=== PATIENT | male | born 1940 | race Caucasian/White ===

== ENCOUNTER → 2019-12-15 15:35 | Outpatient (CLI) | payer MEDICARE, BC, SELFPAY ==
--- NOTE | 2019-12-15 | DI.MRI.S_ITS ---
PROCEDURE: MR HEAD/BRAIN WO/W CON INDICATIONS: GAIT DISTURBANCE TECHNIQUE: Noncontrast axial T1 spin echo, axial T2 fast spin echo, sagittal and axial FLAIR, coronal T2 fast spin echo, axial gradient echo, axial diffusion and ADC through the brain. After the administration of contrast, axial and coronal T1 spin echo with fat saturation through the brain. COMPARISON: None. FINDINGS: Image quality: Excellent. CSF spaces: Basal cisterns are patent. No extra-axial fluid collections. Ventricles are normal in size and shape. Brain: No midline shift. No intracranial bleeds or masses. No abnormal intracranial enhancement. There is cerebral volume loss for age. There is periventricular white matter chronic small vessel ischemic change. The brainstem appears normal. Diffusion-weighted images demonstrate no acute ischemic insults. No chronic ischemic insults. Normal intravascular flow voids are present. Skull and face: Calvarial marrow is normal in signal. Orbits appear normal. Sinuses: Sinuses and mastoids appear clear. IMPRESSION: Mild microvascular atherosclerotic change in the deep white matter hemisphere. No hydrocephalus or mass lesion, no evidence of prior infarction. By this examination no prior trauma or intracranial hemorrhage is suspected. Dictated by: Reinaldo Kan M.D. on 12/15/2019 at 17:25 Approved by: Reinaldo Kan M.D. on 12/15/2019 at 17:26
== END ==
PROVIDERS: Family Provider Family Medicine Geriatric Medicine; PCP Family Medicine; Referring Provider Family Medicine; Visit Provider Family Medicine
DX: R26.9 Unspecified abnormalities of gait and mobility (principal)
CPT/HCPCS: 70553; A9579

== ENCOUNTER → 2021-08-09 10:57 | Outpatient (CLI) | payer MEDICARE, OTHER, SELFPAY ==
--- NOTE | 2021-08-09 | DI.NM.S_ITS ---
PROCEDURE: NM ROBBIN PERF SPECT R&S PHARM Rest and pharmacological stress myocardial perfusion SPECT with gated imaging and ejection fraction RADIOPHARMACEUTICAL: 11.3 mCi Tc-99m tetrafosmin IV at rest and 25.1 mCi Tc-99m tetrafosmin IV at peak effect of pharmacological stress. Lan-naq-eksikzzl was performed. INDICATIONS: Ischemic cardiomyopathy TECHNIQUE: Radiopharmaceutical was injected at peak stress test, and also at rest. SPECT images were obtained. SPECT myocardial perfusion images were displayed in short axis, horizontal long axis, and vertical long axis views. Gated images were reviewed using GoNabit software. COMPARISON: None. CARDIAC STRESS: A pharmacologic stress test was performed under the supervision of an attending staff, using an infusion of lexiscan 0.4mg IV X1. Hemodynamic data: There is normal blood pressure and heart rate response to pharmacologic stress. Symptoms: The patient denied anginal chest pain. Aminophylline: none EKG: No diagnostic changes of ischemia; frequent PVCs during the study. FINDINGS: Raw data: There is good myocardial uptake of radiotracer. No significant motion artifacts. Left ventricle function: Gated images demonstrate hypokinesis of the basal inferior and basal inferolateral wall. No transient ischemic dilation; TID is 1.04 (normal less than 1.3). Left ventricle resting end diastolic volume is 118 mL. Left ventricle stress ejection fraction is 59%; normal range is above 45%. Myocardial perfusion: There is moderately intense fixed inferior wall defect consistent with prior infarction. There is a severe fixed basal inferolateral wall defect consistent with prior infarction. No ischemia. IMPRESSION: Abnormal pharmaceutical nuclear stress test consistent with prior infarction. No ischemia. 1) There is moderately intense fixed inferior wall defect consistent with prior infarction. There is a severe fixed basal inferolateral wall defect consistent with prior infarction. No ischemia. 2) Normal left ventricular size and function (EF post stress 59%). Basal inferior wall and basal inferolateral wall are hypokinetic. 3) No ECG evidence of ischemia. 4) No angina during the study. 5) No prior nuclear stress test available for comparison. Dictated by: Maki Gonzales MD on 08/09/2021 at 16:30 Approved by: Maki Gonzales MD on 08/09/2021 at 16:34
== END ==
PROVIDERS: Family Provider Family Medicine Geriatric Medicine; PCP Family Medicine; Referring Provider Student in an Organized Health Care Education/Training Program; Visit Provider Student in an Organized Health Care Education/Training Program
DX: I25.5 Ischemic cardiomyopathy (principal); R94.39 Abnormal result of other cardiovascular function study
CPT/HCPCS: 78452; 93017; A9502; J2785

== ENCOUNTER → 2021-10-31 12:39 | Outpatient (CLI) | payer OTHER, MEDICARE, SELFPAY ==
--- NOTE | 2021-10-31 12:59 | DI.CT.S_ITS ---
PROCEDURE: CT LUMBAR SPINE WO CON INDICATIONS: LOWER BACK PAIN TECHNIQUE: Noncontrast 3 mm thick sections acquired from the T12 level to the sacrum. Sagittal and coronal reformats were constructed. For radiation dose reduction, the following was used: automated exposure control. COMPARISON: [facility], MR, L-SPINE WITHOUT CONTRAST, 02/12/2017, 12:53. [facility] [place], CR, SPINE LUMB 6+VW, 02/03/2017, 11:00. [facility], MR, L-SPINE WITHOUT CONTRAST, 12/08/2013, 14:40. [facility], MR, MR LUMBAR SPINE WITHOUT CONTRAST, 04/14/2021, 14:13. FINDINGS: Image quality: This examination is limited by involuntary motion artifact. There is artifact associated with the metallic hardware. Bones: No acute vertebral body compression fractures. No suspicious lytic or blastic bony lesions. No pars defects. Mild levoconvex scoliotic curvature is noted. Minimal retrolisthesis is seen at L1-L2. Minimal anterolisthesis is seen at L4-L5. Postoperative changes are seen, with bilateral pedicle screws at the L4 and L5 levels. The screws appear well placed. Radiolucent vertical fixation rods are seen. No findings of hardware failure or hardware loosening are seen. There has been removal of portions of the posterior elements. T12-L1: Normal. L1-L2: The disc height is well preserved. Moderate generalized disc bulge is seen. There is moderate left-sided and zzli-ut-[id number] right-sided neural foraminal narrowing seen. Moderate central canal narrowing is seen. L2-L3: The disc height is well preserved. At least moderate disc bulge is seen. There is a superimposed central disc protrusion. Mild facet joint hypertrophy is seen. Moderate bilateral neural foraminal narrowing is seen. At least moderate central canal narrowing is seen. L3-L4: The disc height is well preserved. At least moderate disc bulge is seen, which is eccentric to the right. There is at least moderate bilateral neural foraminal narrowing seen. Mild central canal narrowing is seen. L4-L5: There are postoperative changes seen at this level. Mild loss of disc height is seen. Moderate generalized disc bulge is seen. No significant neural foraminal narrowing can be seen. The central canal is widely patent. L5-S1: The disc height is relatively well preserved. Mild generalized disc bulge is seen. Moderate bilateral neural foraminal narrowing can be seen, left worse than right. The central canal is widely patent. Soft tissues: No retroperitoneal masses or hematomas. Visualized aorta is normal in caliber. Cholecystectomy clips are seen. IMPRESSION: Unremarkable L4-5 postoperative change, with unremarkable hardware. Multiple levels of degenerative change are seen, which are overall worst at the L2-L3 level and the L3-L4 level. Mild levoconvex scoliotic curvature is noted. Incidental note is made of: Cholecystectomy Dictated by: Shaun Read M.D. on 10/31/2021 at 12:48 Approved by: Shaun Read M.D. on 10/31/2021 at 12:53
== END ==
PROVIDERS: Family Provider Family Medicine Geriatric Medicine; PCP Family Medicine; Referring Provider Orthopaedic Surgery Orthopaedic Surgery of the Spine; Visit Provider Orthopaedic Surgery Orthopaedic Surgery of the Spine
DX: M48.061 Spinal stenosis, lumbar region without neurogenic claudication (principal); M47.816 Spondylosis without myelopathy or radiculopathy, lumbar region; M47.817 Spondylosis without myelopathy or radiculopathy, lumbosacral region; M41.86 Other forms of scoliosis, lumbar region; Z98.1 Arthrodesis status; Z90.49 Acquired absence of other specified parts of digestive tract
CPT/HCPCS: 72131

== ENCOUNTER 2021-12-26 06:17 | Inpatient (IN) | payer OTHER, SELFPAY ==
[2021-12-17 10:49] VITALS: BMI 24.7
[2021-12-26] VITALS (11 sets, daily range): BP systolic 112–128; BP diastolic 62–80; PULSE 49–92; RESP 10–19; TEMP 36.2–37.6; O2SAT 94–100; BMI 24.7; BMI 27.3
--- NOTE | 2021-12-26 | DI.RAD.S_ITS ---
PROCEDURE: XR LUMBAR SPINE 2-3V INDICATIONS: L3-S1 TLIF TECHNIQUE: 2 views of the lumbar spine were acquired. COMPARISON: None. FINDINGS: Bones: Postsurgical changes compatible with L3-S1 TLIF. Orthopedic hardware is in expected position. Orthopedic hardware is intact. Soft tissues: Overlying bowel gas pattern is normal. No suspicious soft tissue calcifications. IMPRESSION: Expected postsurgical change for L3-S1 TLIF. Dictated by: Gabrielle Munoz MD, PhD on 12/26/2021 at 16:44 Approved by: Gabrielle Munoz MD, PhD on 12/26/2021 at 16:45
[2021-12-26] MEDS: LACTATED RINGERS 1,000 ML 42 ML IV ×2 (07:08→09:59)
[2021-12-26] MEDS: ACETAMINOPHEN 325 MG TABLET 975 MG PO (07:09)
[2021-12-26] MEDS: GABAPENTIN 300 MG CAPSULE PO (07:25)
--- NOTE | 2021-12-26 07:49 | PM.HP.1 ---
History of Present Illness History of Present Illness Date Patient Seen: 12/26/21 Time Patient Seen: 07:50 Date of Onset of Symptoms: 11/27/20 Chief complaint: INPT Narrative: Mr. Vasquez is here for scheduled lumbar fusion surgery. He had history of lumbar fusion L4-5 TLIF with progressive worsening of his back pain due to scoliosis and adjacent level disease with spinal stenosis at L3-4, L5-S1 level. He failed conservative care and elected to proceed with surgery. Patient History Medical History (Updated 12/17/21 @ 11:31 by Sweetie Bradley RN) Bleeding ulcer CAD (coronary artery disease) Cardiomyopathy COPD (chronic obstructive pulmonary disease) Former smoker GERD (gastroesophageal reflux disease) Hearing loss History of alcoholism HLD (hyperlipidemia) HTN (hypertension) Inferior myocardial infarction (07/2018) Kidney stone Pancreatitis (12/2020) Paroxysmal A-fib Skin cancer TIA (transient ischemic attack) (~1997) Tuberculosis Surgical History (Updated 12/17/21 @ 11:26 by Sweetie Bradley RN) History of lumbar fusion (~2015) Hx of angioplasty Hx of bilateral cataract extraction Hx of cholecystectomy (12/2020) Hx of detached retina repair Hx of left inguinal hernia repair Hx of lithotripsy Hx of mitral valve repair (~1997) Hx of right inguinal hernia repair Family & Social History Social History: household members spouse Prior Living Arrangements House Safety & Behavioral: Feels Safe in Current Yes Environment Been Physically Hurt or No Threatened By a Person Suicidal Ideation Description None Suicide Plan Description No Plan Tobacco & Substance use: Tobacco type cigarettes,pipe,cigars Smoking Status Former smoker alcohol intake former Substance Use Type does not use Meds Home Medications and Allergies Home Medications Medication Instructions Recorded Confirmed Type lisinopril 2.5 mg tablet 2.5 mg PO QPM #0 09/19/10 12/26/21 History multivitamin 1 tab PO DAILY #0 09/19/10 12/26/21 History omeprazole 20 mg capsule,delayed 20 mg PO QAM #0 09/19/10 12/26/21 History release atorvastatin 20 mg tablet 20 mg PO DAILY 12/17/21 12/17/21 History metoprolol succinate 25 mg 25 mg PO BID 12/17/21 12/26/21 History tablet,extended release 24 hr rivaroxaban 20 mg tablet (Xarelto) 20 mg PO QPM 12/17/21 12/26/21 History Allergies Allergy/AdvReac Type Severity Reaction Status Date / Time soybean Allergy Severe Anaphylaxis Verified 12/26/21 06:59 latex Allergy Mild Rash Verified 12/26/21 06:59 Exam Vital Signs (past 8 hours): - 12/26/21 07:16 Temperature 98.3 F Pulse Rate 49 L Respiratory Rate 18 Blood Pressure 117/69 Pulse Oximetry 98 Oxygen Delivery Method Room Air Back/Spine/Pelvis Other: painful ROM of lumbar spine. Well healed incision. Neuro Other: Decreased motor strength in bilateral TA, EHL and hip flexion at 4/5. Sensibility is decreased to left L3, L4, L5 dermatome Assessment & Plan Assessment & Plan narrative: Risks for surgery include but not limited to bleeding, infection, nerve/dura/bladder/bowel/blood vessel injury, need for additional procedure, even . Pt understands and elected to proceeded with surgery. I scheduled him for L3-4, L5-S1 TLIF and L4-5 hardware revision L3-S1 PSF with instrumentation. Time Spent With Patient Critical Care time: I spent a total of [] minutes of critical care time on this patient's care today; this time is exclusive of procedural time.
--- NOTE | 2021-12-26 07:57 | SUR.OPER ---
Prone on spine table, head in foam head support, padded chest and pelvic supports, gel pad at knees, lower legs supported by pillows; nipples, genitalia and toes free of pressure, arms secured on foam padded arm boards at <90 degrees abduction. Tape over blanket at thigh secured to table.
[2021-12-26] MEDS: CEFAZOLIN 2 GM/20 ML SYRINGE IV ×3 (08:24→20:35)
[2021-12-26] MEDS: BUPIVACAINE 0.25% (PF) 30 ML, EPINEPHrine 0.3 MG INJ (08:47)
[2021-12-26] MEDS: BUPIVACAINE LIPOSOME 266 MG/20 ML VIAL INJ (08:49)
--- NOTE | 2021-12-26 12:39 | PM.OP.1 ---
Operative Date/Time/Diagnoses Date of procedure: 12/26/21 Time of procedure: 07:45 Pre-op diagnosis: 1. Lumbar spinal stenosis L3-4, L4-5, L5-S1 2. Lumbar history of fusion L4-5 with hardware loosening 3. Lumbar scoliosis Post-op diagnosis: same Procedure & Clinicians Procedure: 1. L3-4, L5-S1 posterolateral and posterior interbody fusion 2. L3-4, L5-S1 posterior interbody cage placement 3. L4-5 posterior non-segmental instrumentation removal 4. L4-5 revision laminectomy with exploration of fusion 5. L3-4, L4-5, L5-S1 posterior segmental instrumentation with pedicle screw placement 6. L4-5 posterolatearl fusion 7. Warriors Mark of bone marrow from iliac crest through a separate incision 8. Utilization of microsurgical technique and operating microscope 9. Utilization of robotic navigation Same procedure as scheduled: Yes Indications: Patient has been having chronic back pain and worsening lumbar radiculopathy. Patient underwent previous lumbar fusion with persisting pain and progressive leg weakness numbness bilaterally. Patient failed multiple conservative management with worsening pain weakness and numbness in her lower extremity. Patient has been having difficulty performing activity of daily living. After discussing risks benefits of treatment options, patient elected proceed with surgery. Surgeon: Rosalina To [place] Roller: Katt Prescott Click Yes if Unassisted: No Anesthesia Type: General Operative Notes Closure Type: primary Specimen(s): none sent Prosthetic devices, grafts, tissues, transplants, or devices: Globus CREO MIS screws, Rise cages Applied: catheter Estimated Blood Loss (mL): 150 Blood products transfused: none Procedure in detail: Patient was seen in the preoperative area. Risks and benefits of the surgery was discussed with the patient. Informed consent was obtained from the patient and placed in the chart. Surgical site was marked. Patient was taken to the operative room. General anesthesia was administered. Prophylactic antibiotic was given to the patient less than 30 min before the incision was made. Patient was placed into a prone position on the Mirza table. Patient's back was then prepped and draped in the sterile fashion. Time-out was performed at this time. After patient was prepped and draped, patient's PSIS was palpated and marked bilaterally. Small 1 cm incision was made over the PSIS for placement of the reference probes. Two trocar was placed into the PSIS 1 on each side. The reference probe was attached to the trocar of the reference apparatus. At this time the C-arm imaging was used to confirm AP and lateral of L3, L4, L5, and S1 vertebrae and merged the C-arm imaging using the [employer] robotic navigation system with the CT of the lumbar spine. After successful merging was completed and confirmed, skin marker was used to onesimo out the skin incision using the [employer] robotic arm. Bilateral incision was made at this time. Using patient's previous scar incision was made over the L3, L4, L5-S1 interval on the left side. Fascia was incised in line with skin incision. Patient's previously placed hardware over the L4-5 level was identified by dissecting down to the level the hardware using a Bovie and a Andrews. The locking caps which was removed using Preisbockus screwdriver. The locking betsy was then removed from the tulips of the pedicle screws using a Rosa. The pedicle screws were then removed using the screwdriver. The screws were found to have poor purchase due to hardware loosening and indicating pseudoarthrosis at L4-5 level. Pre templated trajectory was used and guided using the [employer] robotic navigation system for left L3, L4, L5 and S1 pedicle screws and right L3, L4 , L5 and S1 pedicle screws placement. This was done by using the robotic arm to guide the high-speed bur to make a cortical entry point. Next a drill was placed also using the robotic arm and guided using the navigation system drilling partially through bilateral L3, L4, L5, S1 pedicles. Next L3, L4, L5, S1 pedicle screws it was pre templated and measured was placed onto the power pile driver and inserted into the pedicles bilaterally. After all 8 screws were placed C-arm imaging was taken of both AP and lateral to confirm the placement. Excellent placement of the screws were confirmed and a matched precisely with the pre planned screw placement using the navigation system. MARs retractor was inserted using Ansibleivation guidence. Globus MARS retractors was placed inside the incision and docked onto the L3 and L5 lamina. Using microsurgical technique and operating microscope, a L3 and L5 laminectomy and L3-4, L5-S1 facetectomy was performed using a Kerrison rongeur. Patient was found have severe lateral recess and neural foramen stenosis which was fully decompressed after the laminectomy facetectomy. More than 75% of the facets were removed during the process of decompression rendering L4-5 level grossly unstable and required a fusion procedure at the same time. The disc space at L3-4, L5-S1 was identified, and a total diskectomy was performed at L3-4, L5-S1 level. The endplates were decorticated using a rasp and shaver. The total diskectomy and decortication was performed at L3-4, L5-S1 level in order to to accomplish a L3-4, L5-S1 fusion. The local bone from the laminectomy and facetectomy was saved for local bone grafting. After the total diskectomy and decortication was completed, Trifecta bone graft material was combined with local bone that was harvested earlier. At this time, a separate skin is incision was made over the iliac crest. A Jamshidi needle was inserted into the iliac crest through a separate skin incision. 5 cc of bone marrow aspiration was obtained through the separate skin incision using a Jamshidi needle from the iliac crest. The bone marrow aspiration was combined with local bone and the Trifecta bone grafting material. The bone grafting material was placed into the L3-4, L5-S1 interbody space along with a expandable cage. The cages were expanded to its maximum height using the torque limiting screwdriver. The disc preparation as well as the cage insertion were also performed under navigation guidance. After the cage was placed, AP and lateral C-arm imaging was taken to confirm placement of the cage and excellent position was confirmed. The fusion mass on the right side of L4-5 was exposed by performing a right-sided hemilaminectomy at L4-5 level. The hemilaminectomy was performed using the Kerrison rongeur to undercut the lamina as well removing additional epidural scar tissue for purpose of decompressing the epidural space. The fusion mass was explored and was found have visible motion indicating pseudoarthrosis. Globus MARS retractor was inserted and docked onto the L3-4, L4-5 L5-S1 posterolateral gutter. Using the power drill, posterior-lateral decortication was performed at L3-4, L4-5 L5-S1 level until bleeding cortical bone was identified. The remaining bone grafting material was placed into the L3-4, L4-5 L5-S1 posterior lateral gutter he order to accomplish posterolateral fusion at the L3-4, L4-5 L5-S1 level. At this time the tulips were attached to the L3, L4-L5 and S1 pedicle screw shanks. This was done in L3, L4-L5 S1 pedicles bilaterallyAfter measuring the length of the rods, they were inserted into the tulips of the pedicle screws and locked in place using locking caps and torque limiting screwdriver bilaterally. Total 8 caps and 2 titanium rods was used in order to complete the posterior instrumentation construct. After all the hardware was placed, and confirmed with AP and lateral C-arm imaging, the wound was then irrigated with sterile normal saline and packed with Ray-Aram gauze for 3 min to accomplish hemostasis. After the gauze was removed the deep fascia was closed with #1 Vicryl suture. The subcutaneous layer was closed with 2-0 Vicryl. The skin was closed with skin cher. Patient tolerated the procedure well. There were no complications. Neuro monitoring system was used to monitor patient's neurologic status throughout entire procedure. There was no disturbance of the neural monitoring signals throughout the case. Complications: none Post-operative Condition: stable Disposition: PACU Plan for aftercare: Admit to inpatient hospital
--- NOTE | 2021-12-26 12:44 | SUR.OPER ---
Blanchable areas of erythema noted on patient postop after turning patient to supine. Bilateral patches noted on cheeks, chest, hips, knees and shins. All areas were white at first notice, but gradually turned red and were blanchable within 1 minutes of first notice.
--- NOTE | 2021-12-26 13:36 | SUR.PHASEI ---
Report to [facility]
[2021-12-26] MEDS: hydrOXYzine pamoate 25 MG CAPSULE PO (13:43)
[2021-12-26] MEDS: OXYCODONE IR 5 MG TABLET PO (13:43)
[2021-12-26] MEDS: ACETAMINOPHEN 325 MG TABLET 650 MG PO (15:06)
[2021-12-26] MEDS: OXYCODONE IR 5 MG TABLET 10 MG PO ×2 (15:06→20:30)
[2021-12-26] MEDS: SODIUM CHLORIDE 0.9% 1,000 ML 100 ML IV (15:08)
--- NOTE | 2021-12-26 18:48 | PC.NURSE ---
Post-op Received from PACU 81 y/o M s/p tlif. He is experiencing some pain and got 10mg of oxy which he reported as being effective. Has been dozzing off and on. Huizar drains adaq. Lisinopril held as pt reports bp's he is having as being lower than his normal. Tolerated diet w/out problems. Dressing to back is c/d/i. Reddened areas to chest and groin area appear less red. Resting comfortably for now.
[2021-12-26] MEDS: METOPROLOL ER 25 MG TABLET PO (20:30)
[2021-12-26] MEDS: DOCUSATE 100 MG CAPSULE PO (20:35)
[2021-12-26] MEDS: SENNOSIDES 8.6 MG TABLET 17.2 MG PO (20:35)
[2021-12-27] VITALS (8 sets, daily range): BP systolic 111–137; BP diastolic 54–73; PULSE 70–85; RESP 17–18; TEMP 37.1–38.4; O2SAT 95–98
[2021-12-27] MEDS: SODIUM CHLORIDE 0.9% 1,000 ML 100 ML IV (01:06)
[2021-12-27] MEDS: OXYCODONE IR 5 MG TABLET 10 MG PO ×5 (01:09→20:08)
[2021-12-27] MEDS: hydrOXYzine pamoate 25 MG CAPSULE PO (01:10)
[2021-12-27] MEDS: ACETAMINOPHEN 325 MG TABLET 650 MG PO ×2 (01:10→15:48)
[2021-12-27] MEDS: CEFAZOLIN 2 GM/20 ML SYRINGE IV (04:33)
[2021-12-27 05:43] LABS: Hematocrit 34.2 % (41-53); Hemoglobin 11.6 g/dL (13.5-17.5)
[2021-12-27] MEDS: PANTOPRAZOLE DR 20 MG TABLET PO (06:18)
--- NOTE | 2021-12-27 06:25 | PC.NURSE ---
doing well after TLIF. alert/oriented. voices needs. IVF, 2 doses of abx thru the NOC. prn oxy x1 for BTP, this was effective. offered additional dose this AM prior to breakfast and therapy. patient declined. moves all extremities. dressing is CDI.
--- NOTE | 2021-12-27 09:25 | PT.IIE ---
Current Diagnoses Other spondylosis with radiculopathy, lumbosacral region (12/26/21) Spinal stenosis, lumbar region without neurogenic claudication (12/26/21) Arthrodesis status (12/26/21) Other specified postprocedural states (12/26/21) Surgery Performed Operation Date: 12/26/21 07:45 Actual Procedures p L3-4,L4-5 TLIF L4-5 lumbar HWR,exploration of fusion,repeat laminectomy,reinsertion of hardware L3-S1-Teresa - Rosalina To MD Medical History (Last Updated 12/17/21 @ 11:31 by Sweetie Bradley RN) Bleeding ulcer CAD (coronary artery disease) Cardiomyopathy COPD (chronic obstructive pulmonary disease) Former smoker GERD (gastroesophageal reflux disease) Hearing loss History of alcoholism HLD (hyperlipidemia) HTN (hypertension) Inferior myocardial infarction (07/2018) Kidney stone Pancreatitis (12/2020) Paroxysmal A-fib Skin cancer TIA (transient ischemic attack) (~1997) Tuberculosis Physical Therapy Inpatient Evaluation/Re-Eval M1 PT/OT-IP Prior Functional Status Start: 12/27/21 13:18 Freq: NEEDED Status: Active Protocol: Document 12/27/21 09:25 AB (Rec: 12/27/21 13:31 AB [id number]) Medical Review Prior Functional Status Medical History Reviewed Yes Communication able to make needs known; has short term memory issues Mobility and Gait pt stated that he is independent with all mobilities and ambultion withotu AD Social History Household Members spouse Living Arrangements House Number of Floors (Floors) One Floor Number of Stairs To Enter/Railing? 3 steps wide rails to enter the house Home Environment High Toilet,Walk in Shower, Built-In Shower Seat Home Equipment Front Wheel Walker,Straight Cane,Crutches,Grab Bars In Shower Employment Status Retired M2 PT-IP Current Condition Start: 12/27/21 13:18 Freq: NEEDED Status: Active Protocol: Document 12/27/21 09:25 AB (Rec: 12/27/21 13:31 AB [id number]) Physical Therapy Current Condition Current Condition Evaluation Date 12/27/21 Treatment Diagnosis s/p L3-4, L5S1 TLIF; difficulty in walking Onset Date 12/26/21 M3 PT-IP Subjective Start: 12/27/21 13:18 Freq: NEEDED Status: Active Protocol: Document 12/27/21 09:25 AB (Rec: 12/27/21 13:31 [email or web address]) Subjective Physical Therapy Visit Type Type Initial Evaluation Visit Start Time 09:25 Visit Stop Time 10:46 Total Visit Minutes 46 Notes split visits: 925 to 950 am and 1025 to 1046 am. Number of E [employer] Visits 0 Physical Therapy Visit Comments Patient Comments requesting to use the toilet Therapy Pain Assessment Pain When Pain Assessed At Rest Pain Present Pain Present Pain Reported Location Back Intensity 6 Scale Used increases to 10/10 with mobility Pain Management Techniques Distraction,Modification of Treatment,Re-positioning, Timing of Activity with Medications M4 PT-IP Mobility and Gait Start: 12/27/21 13:18 Freq: NEEDED Status: Active Protocol: Document 12/27/21 09:25 (Rec: 12/27/21 13:31 [email or web address]) PT-Bed Mobility Assessment Rolling Type of Rolling Log Rolling Level of Assist Minimal Assistance Supine to Sit Supine to Sit Minimal Assistance Sit to Supine Sit to Supine Moderate Assistance,1 Person Assistance PT-Transfer Assessment Sit to and From Stand Sit to and from Stand Maximum Assistance,1 Person Assistance,Use of Upper Extremities Equipment Transfer Assistive Device Gait Belt,Front Wheeled Walker Orthotic/Prosthetic Devices or Brace: No Transfers Transfer Destination Toilet Transfer Technique ambulated Transfer Ability Level of Assist Moderate Assistance,Maximum Assistance,1 Person Assistance ,Use of Upper Extremities Comments Mobility Comments educated pt on back precautions and log roll bed mobility but requires cues to recall. completed supine to sit log roll min A. c/o increase back pain. sat on EOB SBA. no c/o dizziness but with increase back pain. completed sit to stand max A and max cues. ambulated to the toilet using FWW ~ 15 ft mod to max A and max cues. pt wanting to sit on the toilet for a while. positioned call light next to pt and instructed to ask for assistance. informed nurse. checked back on pt and pt seated on chair. agreed for further PT assessment. completed sit to stand max A and cues. instructed pt to sit back down. educated on sit to stand technique and completed sit to stand again and continues to require max A and max cues. pt tends to bend B knee midway during standing and pt c/o increase back pain. pt sat back on chair. informed pt and spouse that pt is not ready to go home and agreed. pt requested to go back to bed. sit to stand from chair max A and cues and step transfer to bed max A and max cues using fWW mod to max A. completed sit to supine mod A for L elevation and log roll. positioned pt on the bed. call light and table placed within reach. informed pt and spouse regarding SNF rehab and spouse agreed if pt need it. educated pt regarding pain control as pt refused pain meds this morning prior to PT. Pt understood. Gait Assessment Gait Gait Assistance Required: Moderate Assistance,Maximum Assistance Distance (Feet) 15 Able to Maintain Weight Bearing Status No During Gait Assistive Devices Assistive Device Gait Belt,Front Wheeled Walker Orthotic/Prosthetic Devices or Brace: No Gait Deviations General Gait Pattern Antalgic,Decreased Stride Length,Step-to Gait Factors Limiting Gait Function Factors Limiting Gait Function Decreased Activity Tolerance, Decreased Strength,Difficulty Following Directions,Limited Range of Motion,Pain,Poor Balance,Poor Safety Awareness PT-Balance Assessment Sitting Balance and Reactions Static Sitting Balance Ability Good Dynamic Sitting Balance Ability Fair Standing Balance and Reactions Static Standing Balance Ability Fair Dynamic Standing Balance Ability Poor Device Used FWW M5 PT-IP Objective Assessments Start: 12/27/21 13:18 Freq: NEEDED Status: Active Protocol: Document 12/27/21 09:25 AB (Rec: 12/27/21 13:31 AB [id number]) Orientation Orientation/Cognition Level of Alertness Alert Orientation Name Language Function Ability No Deficits Noted Safety Awareness Decreased Safety Awareness Memory Description Short Term Impaired Gross Range of Motion Lower Extremity ROM Assessment Within Functional Limits Strength Lower Extremity Strength Hip 4-/5 Knee 4-/5 Sensation Assessment Sensation Gross Sensation WNL Muscle Tone Muscle Tone WNL Yes M6 PT-IP Treatment Start: 12/27/21 13:18 Freq: NEEDED Status: Active Protocol: Document 12/27/21 09:25 AB (Rec: 12/27/21 13:31 AB [email or web address]) Physical Therapy Treatment Education Education Provided Precautions,Weight Bearing Status,Post-Op Packet,Safety M7 PT-IP Assessment and Plan Start: 12/27/21 13:18 Freq: NEEDED Status: Active Protocol: Document 12/27/21 09:25 AB (Rec: 12/27/21 13:31 AB [email or web address]) PT Summary Assessment and Plan Potential Rehabilitation Potential Fair Status of Condition at Evaluation Evolving Summary Impairments Pain,ROM,Strength,Balance, Coordination,Sensation,Tone, Cognition,Bed Mobility, Transfers,Gait,Activity Tolerance Assessment Summary pt requiring max A for sit to stand and mod to max with ambulation using fWW. pt with c/o increase back pain affecting mobility. pt at this time will require SNF rehab to improve strength and mobility. will continue to assess progress. Goals Bed Mobility Goal Standby Assistance Transfer Goal Standby Assistance,Front Wheeled Walker Gait Goal Standby Assistance,Front Wheel Walker Gait Distance 200 Other Goals up/down 3 steps 1 rail SBA Days to Meet Goals 10 Frequency of Treatment Frequency Of Treatment Twice a Day Treatment Plan Physical Therapy Treatment Plan Bed Mobility Training,Transfer Training,Gait Training, Therapeutic Exercise,Balance Retraining,Post Op Education, Discharge Planning,Hot or Cold Pack,Neuromuscular Re-ed, Coordination Retraining,Manual Therapy Precautions Lumbar Precautions Log Roll,No Twisting,Limit Bending,Lifting Restriction of 10 lbs,Gait Belt above Incisional Area Recommendations To Nursing Amount of Assist Needed 1 Person Assist Discharge Recommendations PT Discharge Recommendations SNF Rehab Transportation Needs at Discharge Wheelchair/Cabulance
[2021-12-27] MEDS: MULTIVITAMIN 1 TABLET 1 TAB PO (09:47)
[2021-12-27] MEDS: METOPROLOL ER 25 MG TABLET PO ×2 (09:47→21:11)
[2021-12-27] MEDS: DOCUSATE 100 MG CAPSULE PO ×2 (09:47→21:12)
[2021-12-27] MEDS: ATORVASTATIN 20 MG TABLET PO (09:47)
--- NOTE | 2021-12-27 11:14 | PM.DS.1 ---
History of Present Illness History of Present Illness Date Patient Seen: 12/27/21 Time Patient Seen: 09:00 Chief complaint: INPT Narrative: Operative Date/Time/Diagnoses Date of procedure: 12/26/21 Time of procedure: 07:45 Pre-op diagnosis: 1. Lumbar spinal stenosis L3-4, L4-5, L5-S1 2. Lumbar history of fusion L4-5 with hardware loosening 3. Lumbar scoliosis Post-op diagnosis: same Procedure & Clinicians Procedure: 1. L3-4, L5-S1 posterolateral and posterior interbody fusion 2. L3-4, L5-S1 posterior interbody cage placement 3. L4-5 posterior non-segmental instrumentation removal 4. L4-5 revision laminectomy with exploration of fusion 5. L3-4, L4-5, L5-S1 posterior segmental instrumentation with pedicle screw placement 6. L4-5 posterolatearl fusion 7. [place] of bone marrow from iliac crest through a separate incision 8. Utilization of microsurgical technique and operating microscope 9. Utilization of robotic navigation Same procedure as scheduled: Yes Indications: Patient has been having chronic back pain and worsening lumbar radiculopathy. Patient underwent previous lumbar fusion with persisting pain and progressive leg weakness numbness bilaterally. Patient failed multiple conservative management with worsening pain weakness and numbness in her lower extremity.? Patient has been having difficulty performing activity of daily living.? After discussing risks benefits of treatment options, patient elected proceed with surgery. Surgeon: Rosalina To Project Manager Industrial: Katt Prescott Click Yes if Unassisted: No Anesthesia Type: General Operative Notes Closure Type: primary Specimen(s): none sent Prosthetic devices, grafts, tissues, transplants, or devices: Globus CREO MIS screws, Rise cages Applied: catheter Estimated Blood Loss (mL): 150 Blood products transfused: none Discharge Providers Provider Date of admission: 12/26/21 06:17 Discharge Date: 12/27/21 Primary care physician: Shaun Garcia DO Consults: 12/26/21 14:10 Consult to Occupational Therapy Evaluate & Treat Comment: Physician Instructions: Evaluate and treat Consult to Physical Therapy Evaluate & Treat Comment: Physician Instructions: Evaluate and Treat Discharge provider: Katt Prescott PA-C Summary Hospital Course Discharge Diagnosis: s/p lumbar fusion Hospital Course: Mr Vasquez's hospital course was unremarkable. On POD# 1 he was complaining of back pain with movement; he denied leg pain. He was eating without difficulty. His catheter was removed and he was able to urinate independently prior to discharge. He was evaluated by PT. He lives on [facility] and due to the financial and practical inconvenience of his spouse staying in a nearby hotel, he would like to discharge home. He has a walker at home. Exam Vital Signs (past 8 hours): - 12/27/21 04:36 12/27/21 07:45 Temperature 99.5 F 98.7 F Pulse Rate 77 70 Respiratory Rate 17 18 Blood Pressure 125/68 122/62 Pulse Oximetry 98 98 Oxygen Delivery Method Room Air Oxygen Flow Rate 0 Narrative Exam Narrative: 5/5 strength in hip flexors, quadriceps, hamstrings, DF, PF, and EHL bilaterally. Sensation to light touch intact throughout BLE. Calves soft, compressible, nontender and without palpable cords or masses. Low back dressing CDI. Objective Labs Result Diagrams: 12/27/21 04:56 Labs: Laboratory Results - last 24 hr 12/27/21 04:56 Hgb 11.6 L Hct 34.2 L PFSH Medical History (Updated 12/17/21 @ 11:31 by Sweetie Bradley RN) Bleeding ulcer CAD (coronary artery disease) Cardiomyopathy COPD (chronic obstructive pulmonary disease) Former smoker GERD (gastroesophageal reflux disease) Hearing loss History of alcoholism HLD (hyperlipidemia) HTN (hypertension) Inferior myocardial infarction (07/2018) Kidney stone Pancreatitis (12/2020) Paroxysmal A-fib Skin cancer TIA (transient ischemic attack) (~1997) Tuberculosis Surgical History (Updated 12/27/21 @ 09:01 by Katt Prescott PA-C) History of lumbar fusion (~2015) Hx of angioplasty Hx of bilateral cataract extraction Hx of cholecystectomy (12/2020) Hx of detached retina repair Hx of left inguinal hernia repair Hx of lithotripsy Hx of mitral valve repair (~1997) Hx of right inguinal hernia repair Social History household members: spouse Smoking Status: Former smoker alcohol intake: former Discharge Assessment & Plan Assessment and Plan Assessment: s/p L3-4 and L5-S1 TLIF; removal of L4-5 posterior hardware; posterior fusion from L3-S1. Feeling well following procedure, would like to discharge home with spouse. Plan of Treatment: Discharge home. Multimodal pain control. Follow up in 2 weeks. Discharge Plan Discharge Plan Patient Disposition: Home Discharge orders & Medications Prescriptions: New acetaminophen 325 mg Tablet 650 mg PO Q6HR PRN (Reason: Pain, Mild (1-3)) Qty: 240 2RF docusate sodium 100 mg Capsule 100 mg PO BID PRN (Reason: constipation) Qty: 60 2RF hydroxyzine pamoate 25 mg Capsule 25 mg PO Q4HR PRN (Reason: muscle spasm) Qty: 120 1RF oxycodone 5 mg Tablet 10 mg PO Q4H PRN (Reason: Pain, Severe (7-10)) Qty: 60 0RF Continued lisinopril 2.5 mg Tablet 2.5 mg PO QPM Qty: 0 0RF omeprazole 20 mg Capsule,Delayed Release(Dr/Ec) 20 mg PO QAM Qty: 0 0RF multivitamin Tablet 1 tab PO DAILY Qty: 0 0RF atorvastatin 20 mg Tablet 20 mg PO DAILY 0RF metoprolol succinate 25 mg Tablet Extended Release 24 Hr 25 mg PO BID 0RF Xarelto 20 mg Tablet 20 mg PO QPM 0RF Rx Instructions: must administer with evening meal Follow up/Referrals: Rosalina To MD [Physician] - As previously scheduled (Follow up with Dr To on 01/08/2022 @ 10:50 am at [facility]) Shaun Garcia DO [Primary Care Provider] - Diet/Activity/Treatments Diet: Diet as Tolerated Activity: Walk frequently! No deep bending (more than 90 degrees) or twisting at the waist. No lifting > 20 pounds. Skin/Wound/Dressing Care Report to your healthcare provider any signs of infection, such as:: chills, fever, night sweats, increased pain, unusual drainage and unusual redness Dressing: May shower; keep incisions as dry as possible. Change dressing if it becomes wet inside. No bathing or otherwise soaking incisions. Do not put any creams, lotions, or ointments on incisions. Visit Report/Discharge Packet Instructions: DI for Heart Failure, DI for Prescription Opioid Use, DI for Transforaminal Lumbar Interbody Fusion Stand Alone Forms: Surgery Discharge Discharge Data Primary Care Provider: Shaun Garcia
--- NOTE | 2021-12-27 11:29 | OT.IPNOTE ---
Attempted OT eval with pt but pt just finished with PT earlier. Pt states too tired and in too much pain. Therefore touch base with pt later or if needed to see pt tomorrow as pt wanting to focus on his mobility today.
--- NOTE | 2021-12-27 13:10 | OT.IP.EVAL ---
Current Diagnoses Other spondylosis with radiculopathy, lumbosacral region (12/26/21) Spinal stenosis, lumbar region without neurogenic claudication (12/26/21) Arthrodesis status (12/26/21) Other specified postprocedural states (12/26/21) Surgery Performed Operation Date: 12/26/21 07:45 Actual Procedures p L3-4,L4-5 TLIF L4-5 lumbar HWR,exploration of fusion,repeat laminectomy,reinsertion of hardware L3-S1-Teresa To MD Past Medical History (Last Updated 12/17/21 @ 11:31 by Sweetie Bradley RN) Bleeding ulcer CAD (coronary artery disease) Cardiomyopathy COPD (chronic obstructive pulmonary disease) Former smoker GERD (gastroesophageal reflux disease) Hearing loss History of alcoholism History of lumbar fusion (~2015) HLD (hyperlipidemia) HTN (hypertension) Hx of angioplasty Hx of bilateral cataract extraction Hx of cholecystectomy (12/2020) Hx of detached retina repair Hx of left inguinal hernia repair Hx of lithotripsy Hx of mitral valve repair (~1997) Hx of right inguinal hernia repair Inferior myocardial infarction (07/2018) Kidney stone Pancreatitis (12/2020) Paroxysmal A-fib Skin cancer TIA (transient ischemic attack) (~1997) Tuberculosis Surgical History (Last Updated 12/17/21 @ 11:26 by Sweetie Bradley, RN) History of lumbar fusion (~2015) Hx of angioplasty Hx of bilateral cataract extraction Hx of cholecystectomy (12/2020) Hx of detached retina repair Hx of left inguinal hernia repair Hx of lithotripsy Hx of mitral valve repair (~1997) Hx of right inguinal hernia repair Occupational Therapy Inpatient Evaluation/Re-Eval M1 PT/OT-IP Prior Functional Status Start: 12/27/21 13:18 Freq: NEEDED Status: Active Protocol: Document 12/27/21 09:25 AB (Rec: 12/27/21 13:31 AB [id number]) Medical Review Prior Functional Status Medical History Reviewed Yes Communication able to make needs known; has short term memory issues Mobility and Gait pt stated that he is independent with all mobilities and ambulation without AD Social History Household Members spouse Living Arrangements House Number of Floors (Floors) One Floor Number of Stairs To Enter/Railing? 3 steps wide rails to enter the house Home Environment High Toilet,Walk in Shower, Built-In Shower Seat Home Equipment Front Wheel Walker,Straight Cane,Crutches,Grab Bars In Shower Employment Status Retired M2 OT-IP Current Condition Start: 12/27/21 13:15 Freq: Status: Active Protocol: Document 12/27/21 11:05 [facility] (Rec: 12/27/21 13:35 [facility] [id number]) Occupational Therapy Current Condition Current Condition Evaluation Date 12/27/21 Treatment Diagnosis s/p L3-4, L5-S1, L4-5 hardware revision, L3-S1 PSF with ins Diagnosis Onset Date 12/26/21 Post Operative Precautions Lumbar Precautions Log Roll,No Twisting,Limit Bending,Lifting Restriction of 10 lbs,Gait Belt above Incisional Area M3 OT- IP Subjective and Pain Start: 12/27/21 13:15 Freq: Status: Active Protocol: Document 12/27/21 11:05 [facility] (Rec: 12/27/21 13:35 [facility] [id number]) OT- Subjective Occupational Therapy Visit Type Type Initial Evaluation Visit Start Time 11:05 Visit Stop Time 13:10 Total Visit Minutes 30 Notes Pt seen for split treatment [id number] and [id number]. Pt's in the room for OT eval. Occupational Therapy Visit Comments Patient Comments Pt agreed to get up in PM due to wanting to use the bathroom . Patient/Caregiver Goals TO go home. OT Pain Assessment Pain When Pain Assessed During Mobility Pain Present Pain Present Pain Reported Location Back Intensity 5 Scale Used Numeric (0 - 10) M4 OT- IP ADL's Start: 12/27/21 13:15 Freq: Status: Active Protocol: Document 12/27/21 11:05 [facility] (Rec: 12/27/21 13:35 [facility] [id number]) OT [id number] General Evaluation Self-Feeding Ability Independent OT ADL-Grooming Comments OT Grooming Comments Not performed. OT ADL-Oral Care Comments Oral Care Comments Not performed. OT ADL-Dressing General Eval Lower Body Dressing Ability Maximum Assistance Areas Needing Assistance Socks Comments OT Dressing Comments Pt states that his will be able to assist for his needs. OT ADL-Toileting Comments OT Toileting Comments Attempted to get to the bathroom however pt too unsteady on his feet and therefore had pt sit and try to use the urinal. OT ADL-Bathing Comments OT Bathing Comments Sponge bath more appropriate at this time. M5 OT- IP IADL's Start: 12/27/21 13:15 Freq: Status: Active Protocol: Document 12/27/21 11:05 [facility] (Rec: 12/27/21 13:35 [facility] [id number]) OT-Instrumental Activities of Daily Living Home Safety Awareness Home Safety Comments Pt has a supportive to be able to assist pt for his needs. M6 OT- IP Functional Cognition Start: 12/27/21 13:15 Freq: Status: Active Protocol: Document 12/27/21 11:05 [facility] (Rec: 12/27/21 13:35 [facility] [id number]) Cognitive Factors Limiting Selfcare Function Cognitive Ability Level of Alertness Alert Patient Orientation Name,Place,Situation Attention Span Ability Capable of Focused Attention, Capable of Sustained Attention Ability to Follow Commands Able to Follow One Step Commands Cognitive Comments Cognitive Assessment Comments Pt able to follow commands and follow his back precautions after cues. OT- Vision and Hearing OT- Vision Assessment Visual Acuity Glasses All The Time M7 OT- IP Mobility and Balance Start: 12/27/21 13:15 Freq: Status: Active Protocol: Document 12/27/21 11:05 [facility] (Rec: 12/27/21 13:35 [facility] [id number]) OT- Bed Mobility Assessment Rolling Type of Rolling Roll to Right Level of Assistance Standby Assistance Supine to Sit Supine to Sit Assist Moderate Assistance Sit to Supine Sit to Supine Assist Minimal Assistance Scooting Scooting to Edge of Bed Contact Guard Assistance OT-Transfer Assessment Sit to and From Stand Sit to and from Stand Moderate Assistance,Maximum Assistance Comments Mobility Comments MOD/MAX AX to stand to FWW and unsteady on his feet and able to take a few side steps to the head of the bed with MODA and FWW. OT- Balance Assessment Sitting Balance and Reactions Static Sitting Balance Ability Good Standing Balance and Reactions Static Standing Balance Ability Poor M8 OT- IP Objective Assessments Start: 12/27/21 13:15 Freq: Status: Active Protocol: Document 12/27/21 11:05 [facility] (Rec: 12/27/21 13:35 [facility] [id number]) OT-Muscle Tone Assessment Muscle Tone WNL Yes M9 OT- IP Assessment and Plan Start: 12/27/21 13:15 Freq: Status: Active Protocol: Document 12/27/21 11:05 [facility] (Rec: 12/27/21 13:35 [facility] [id number]) OT Summary Assessment and Plan Potential Rehabilitation Potential Good Analytic Complexity at Evaluation Low Summary OT Impairments Pain,Balance,Functional Mobility,Grooming,Dressing, Toileting,Bathing,Toilet Transfers,Shower Transfers, Activity Tolerance Progress Towards Goals Slow Progress due to Pain,Slow Progress due to Medical Issues,Slow Progress due to Activity Tolerance Assessment Summary Pt low complexity and main barriers are pain, unsteady on his feet and now needing extensive assist for ADl and mobility needs. Pending pain control, progress and caregiver training, pt hoping to go home versus may need short skilled rehab. Goals Grooming Goal Independent Dressing Goal Minimal Assistance Toileting Goal Independent Bathing Goal Independent Toilet Transfer Goal Independent Shower Transfer Goal Independent Patient/Caregiver Education Goal Demonstrate Post-Op Precautions,Caregiver Independent Assisting Patient Days to Meet Goals 10 Frequency of Treatment Frequency Of Treatment Once a Day Treatment Plan OT Treatment Plan ADL Training,Functional Mobility,Patient/Family Education,Discharge Planning Other Treatment Recommendations and Next caregiver training Treatment Focus Discharge Recommendations OT Discharge Recommendations Home vs SNF Home Equipment Needs shower chair Transportation Needs at Discharge Private Vehicle,Wheelchair/ Cabulance
--- NOTE | 2021-12-27 14:10 | PT.IPTN ---
Current Diagnoses Other spondylosis with radiculopathy, lumbosacral region (12/26/21) Spinal stenosis, lumbar region without neurogenic claudication (12/26/21) Arthrodesis status (12/26/21) Other specified postprocedural states (12/26/21) Surgery Performed Operation Date: 12/26/21 07:45 Actual Procedures p L3-4,L4-5 TLIF L4-5 lumbar HWR,exploration of fusion,repeat laminectomy,reinsertion of hardware L3-S1-Teresa - Rosalina To MD Physical Therapy Treatment Note M2 PT-IP Current Condition Start: 12/27/21 13:18 Freq: NEEDED Status: Active Protocol: Document 12/27/21 09:25 AB (Rec: 12/27/21 13:31 AB [id number]) Physical Therapy Current Condition Current Condition Evaluation Date 12/27/21 Treatment Diagnosis s/p L3-4, L5S1 TLIF; difficulty in walking Onset Date 12/26/21 M3 PT-IP Subjective Start: 12/27/21 13:18 Freq: NEEDED Status: Active Protocol: Document 12/27/21 14:10 AB (Rec: 12/27/21 16:06 AB [email or web address]) Subjective Physical Therapy Visit Type Type Treatment Note Visit Start Time 14:10 Visit Stop Time 14:32 Total Visit Minutes 22 Number of SUPERVISOR STENO POOL Visits 0 Physical Therapy Visit Comments Patient Comments pt is agreeable to do PT Therapy Pain Assessment Pain When Pain Assessed At Rest Pain Present Pain Present Pain Reported Location Back Intensity 4 Scale Used increases to 8/10 with mobility M4 PT-IP Mobility and Gait Start: 12/27/21 13:18 Freq: NEEDED Status: Active Protocol: Document 12/27/21 14:10 AB (Rec: 12/27/21 16:06 AB [email or web address]) PT-Bed Mobility Assessment Rolling Type of Rolling Log Rolling Level of Assist Minimal Assistance Supine to Sit Supine to Sit Minimal Assistance,1 Person Assistance Sit to Supine Sit to Supine Moderate Assistance,1 Person Assistance PT-Transfer Assessment Sit to and From Stand Sit to and from Stand Maximum Assistance,1 Person Assistance,Use of Upper Extremities Equipment Transfer Assistive Device Gait Belt,Front Wheeled Walker Orthotic/Prosthetic Devices or Brace: No Transfer Ability Level of Assist Maximum Assistance Comments Mobility Comments pt completed supine to sit log roll min A and cues. c/o increase pain with mobility. completed sit to stand max A and cues and ambulated in room ~ 8 ft using FWW max A. pt is unsteady with standing rest breaks in between due to c/o pain with slight knee buckle during turn. pt wants to urinate but does not want to walk to the toilet and wants to use the urinal in sitting. ambulated back to EOB. used the urinal. rested to go back to bed and completed log rol sit to supine mod A with LE elevation. positioned pt in bed. call light and table placed within reach. Pt continue to c/o increase pain affecting mobility. Gait Assessment Gait Gait Assistance Required: Maximum Assistance Distance (Feet) 8 Assistive Devices Assistive Device Gait Belt,Front Wheeled Walker Orthotic/Prosthetic Devices or Brace: No Gait Deviations General Gait Pattern Decreased Stride Length, Decreased Feet Clearance Factors Limiting Gait Function Factors Limiting Gait Function Decreased Activity Tolerance, Decreased Strength,Limited Range of Motion,Pain,Poor Balance,Poor Safety Awareness M5 PT-IP Objective Assessments Start: 12/27/21 13:18 Freq: NEEDED Status: Active Protocol: Document 12/27/21 09:25 AB (Rec: 12/27/21 13:31 AB [email or web address]) Orientation Orientation/Cognition Level of Alertness Alert Orientation Name Language Function Ability No Deficits Noted Safety Awareness Decreased Safety Awareness Memory Description Short Term Impaired Gross Range of Motion Lower Extremity ROM Assessment Within Functional Limits Strength Lower Extremity Strength Hip 4-/5 Knee 4-/5 Sensation Assessment Sensation Gross Sensation WNL Muscle Tone Muscle Tone WNL Yes M6 PT-IP Treatment Start: 12/27/21 13:18 Freq: NEEDED Status: Active Protocol: Document 12/27/21 14:10 AB ([facility]27/21 [facility] Physical Therapy Treatment Education Education Provided Precautions,Safety M7 PT-IP Assessment and Plan Start: 12/27/21 13:18 Freq: NEEDED Status: Active Protocol: Document 12/27/21 14:10 AB (Rec: 12/27/21 16:06 [facility] PT Summary Assessment and Plan Potential Rehabilitation Potential Fair Summary Impairments Pain,ROM,Strength,Balance, Coordination,Sensation,Tone, Cognition,Bed Mobility, Transfers,Gait,Activity Tolerance Progress Towards Goals Slow Progress due to Pain Assessment Summary pt continue to c/o increase back pain affecting mobility and requiring max A with sit to stand and with ambulation using FWW. pt unable to tolerate much activity and only ambulated 8 ft this afternoon. will continue to assess progress but pt huma require SNF rehab at this time . Goals Bed Mobility Goal Standby Assistance Transfer Goal Standby Assistance,Front Wheeled Walker Gait Goal Standby Assistance,Front Wheel Walker Gait Distance 200 Other Goals up/down 3 steps 1 rail SBA Days to Meet Goals 10 Frequency of Treatment Frequency Of Treatment Twice a Day Treatment Plan Physical Therapy Treatment Plan Bed Mobility Training,Transfer Training,Gait Training, Therapeutic Exercise,Balance Retraining,Post Op Education, Discharge Planning,Hot or Cold Pack,Neuromuscular Re-ed, Coordination Retraining,Manual Therapy Precautions Lumbar Precautions Log Roll,No Twisting,Limit Bending,Lifting Restriction of 10 lbs,Gait Belt above Incisional Area Recommendations To Nursing Amount of Assist Needed 1 Person Assist Discharge Recommendations PT Discharge Recommendations SNF Rehab Transportation Needs at Discharge Wheelchair/Cabulance
[2021-12-27] MEDS: lisinopriL 5 MG TABLET 2.5 MG PO (15:50)
--- NOTE | 2021-12-27 17:01 | PC.NURSE ---
Assumed care of pt at 1500. Pt resting in bed during hand-off. Awakens to voice. Oriented x3. Drsg on back intact with mod drainage. Huizar removed at 0845. Per Katt MURILLO pt can d/c to home if cleared by P.T., Unable to clear P.T. Msg left at SNO office to notify that pt is not leaving today. D/C ordered Canceled.
[2021-12-27] MEDS: SENNOSIDES 8.6 MG TABLET 17.2 MG PO (21:12)
[2021-12-27] MEDS: SODIUM CHLORIDE 0.9% FLUSH 10 ML IV (21:12)
[2021-12-28 00:23] VITALS: BP 111/68; PULSE 84; RESP 17; TEMP 37.8; O2SAT 95
[2021-12-28] MEDS: ACETAMINOPHEN 325 MG TABLET 650 MG PO ×2 (04:24→14:16)
[2021-12-28] MEDS: OXYCODONE IR 5 MG TABLET 10 MG PO ×3 (04:26→14:15)
[2021-12-28 05:07] VITALS: BP 110/67; PULSE 83; RESP 17; TEMP 38.2; O2SAT 94
--- NOTE | 2021-12-28 05:11 | PC.NURSE ---
Picked up pt mid shift, complains of pain /, oxy 10 mg and tylenol 650 given. Pt states he is unable to roll over because it hurts too much. Encouraged pt to move and change position in bed, pt able to move in bed.
[2021-12-28] MEDS: PANTOPRAZOLE DR 20 MG TABLET PO (06:17)
[2021-12-28 06:26] VITALS: TEMP 36.8
[2021-12-28 08:02] VITALS: BP 102/41; PULSE 65; RESP 18; TEMP 37.4; O2SAT 96
--- NOTE | 2021-12-28 09:05 | CM.IDA ---
Initial DCP Assessment Note Pt is an 81 yo male, resident of [place], now POD#2 from spinal surgery w/ Dr To. Patient has been discharged today 12.28.21 PCP: Shaun Garcia Payer: [employer] Reviewed chart, met w/patient and his yesterday; introduced role and reviewed DCP Patient living mostly indp at home, mobility and endurance limited d/t pain Patient/spouse discuss home plan and wonder if HH RN/PT would be helpful? Discussed [facility] services and this WINCHER suggested HH referral to see if they could get auth from patient's [employer] insurer, patient/spouse agreeable Plan: DC home today w/spouse, [place], pov, [facility] referral faxed to see if they could take [employer] BLOSSOM Elliott Discharge Planning/Care Management CM Discharge Assessment Start: 12/28/21 09:01 Freq: Status: Active Protocol: Document 12/28/21 09:01 BASIL[place] (Rec: 12/28/21 09:05 [place] [id number]) Discharge Planning Assessment Assigned Copper Tapper BLOSSOM Belle DPOA/Assigned Designee Name Carla Vasquez, spouse Contact Information [phone] Advance Directives? Yes Advance Directives on File No History Provided By Patient,Significant Other Prior Living Arrangements House Household Members spouse Type of transporation used prior to Drives own vehicle admit Independent with ADL's Yes Is patient alert and oriented? Yes Comment Decreased activity tolerance and endurance d/t pain Caregiver for Another No Comment Spouse states she had HH when she went home after knee surgery Patient/Family Preference Home with Home Health Barriers to Discharge Yes Comment PT recommending SNF; patient slow to progress thus far. DC home today per patient and family request Discharge Plan Home with Home Health Transportation Arrangement Family Referrals Initiated Home Health Additional Comment Referral to [facility] to investigate HH coverage w/ patient's [employer] Medicare Choice List Provided No SNF/HH Preference [facility] is the only HH agency that serves [facility]
--- NOTE | 2021-12-28 09:16 | PT.IPTN ---
Current Diagnoses Other spondylosis with radiculopathy, lumbosacral region (12/26/21) Spinal stenosis, lumbar region without neurogenic claudication (12/26/21) Arthrodesis status (12/26/21) Other specified postprocedural states (12/26/21) Surgery Performed Operation Date: 12/26/21 07:45 Actual Procedures p L3-4,L4-5 TLIF L4-5 lumbar HWR,exploration of fusion,repeat laminectomy,reinsertion of hardware L3-S1-Teresa - Rosalina To MD Physical Therapy Treatment Note M2 PT-IP Current Condition Start: 12/27/21 13:18 Freq: NEEDED Status: Active Protocol: Document 12/27/21 09:25 AB (Rec: 12/27/21 13:31 AB [id number]) Physical Therapy Current Condition Current Condition Evaluation Date 12/27/21 Treatment Diagnosis s/p L3-4, L5S1 TLIF; difficulty in walking Onset Date 12/26/21 M3 PT-IP Subjective Start: 12/27/21 13:18 Freq: NEEDED Status: Active Protocol: Document 12/28/21 08:53 KS (Rec: 12/28/21 12:29 KS [id number]) Subjective Physical Therapy Visit Type Type Treatment Note Visit Start Time 08:53 Visit Stop Time 09:16 Total Visit Minutes 23 Number of WELDING TEACHER Visits 1 Physical Therapy Visit Comments Patient Comments pt is agreeable to do PT Therapy Pain Assessment Pain When Pain Assessed At Rest Pain Present Pain Present Pain Reported M4 PT-IP Mobility and Gait Start: 12/27/21 13:18 Freq: NEEDED Status: Active Protocol: Document 12/28/21 08:53 KS (Rec: 12/28/21 12:29 KS [id number]) PT-Bed Mobility Assessment Rolling Type of Rolling Log Rolling Level of Assist Minimal Assistance Supine to Sit Supine to Sit Minimal Assistance,1 Person Assistance Sit to Supine Sit to Supine Moderate Assistance,1 Person Assistance PT-Transfer Assessment Sit to and From Stand Sit to and from Stand Maximum Assistance,1 Person Assistance,Use of Upper Extremities Equipment Transfer Assistive Device Gait Belt,Front Wheeled Walker Orthotic/Prosthetic Devices or Brace: No Transfers Transfer Destination Bed Transfer Technique Side steps laterally Transfer Ability Level of Assist Maximum Assistance Comments Mobility Comments Pt in bed upon arrival, Min A for logroll and sup<>sit. Max A x1 and 4 attempts for pt sit <>stand w/ FWW and raised bed. Pt reports weakness in legs and needed several cues to not pull up from FWW but to push up from bed. Upon standing, pt reported lightheadedness, instructed pt to take steps laterally towards HOB which he did w/ MOD A for FWW management. Pt sat down and BP : 99/46. Mod A for sit<> sidelying, Min A for logroll back in bed. Encouraged pt to perform ankle pumps and glute sets. Left in bed w/ alarm on and all needs in reach. Gait Assessment Comments Gait Comments Unable due to low BP and lightheadedness PT-Balance Assessment Sitting Balance and Reactions Static Sitting Balance Ability Good Dynamic Sitting Balance Ability Fair Standing Balance and Reactions Static Standing Balance Ability Fair Dynamic Standing Balance Ability Poor Device Used FWW M5 PT-IP Objective Assessments Start: 12/27/21 13:18 Freq: NEEDED Status: Active Protocol: Document 12/27/21 09:25 AB (Rec: 12/27/21 13:31 AB [id number]) Orientation Orientation/Cognition Level of Alertness Alert Orientation Name Language Function Ability No Deficits Noted Safety Awareness Decreased Safety Awareness Memory Description Short Term Impaired Gross Range of Motion Lower Extremity ROM Assessment Within Functional Limits Strength Lower Extremity Strength Hip 4-/5 Knee 4-/5 Sensation Assessment Sensation Gross Sensation WNL Muscle Tone Muscle Tone WNL Yes M6 PT-IP Treatment Start: 12/27/21 13:18 Freq: NEEDED Status: Active Protocol: Document 12/28/21 08:53 KS (Rec: 12/28/21 12:29 KS [id number]) Physical Therapy Treatment Exercises Exercises Ankle Pumps,Gluteal Sets Education Education Provided Precautions,Safety M7 PT-IP Assessment and Plan Start: 12/27/21 13:18 Freq: NEEDED Status: Active Protocol: Document 12/28/21 08:53 KS (Rec: 12/28/21 12:29 KS [id number]) PT Summary Assessment and Plan Potential Rehabilitation Potential Fair Summary Impairments Pain,ROM,Strength,Balance, Coordination,Sensation,Tone, Cognition,Bed Mobility, Transfers,Gait,Activity Tolerance Assessment Summary Pt slow to progress and still requiring Min to Mod A for bed mobility and Max A w/ bed raised for sit<>stand. Pt requires cues for safety and sequencing for all tasks. BP 99/46 and pt lightheaded. Limited by weakness, low activity tolerance, pain, and lightheadedness. At this time, pt will require SNF to improve functional mobility. Goals Bed Mobility Goal Standby Assistance Transfer Goal Standby Assistance,Front Wheeled Walker Gait Goal Standby Assistance,Front Wheel Walker Gait Distance 200 Other Goals up/down 3 steps 1 rail SBA Days to Meet Goals 10 Frequency of Treatment Frequency Of Treatment Twice a Day Treatment Plan Physical Therapy Treatment Plan Bed Mobility Training,Transfer Training,Gait Training, Therapeutic Exercise,Balance Retraining,Post Op Education, Discharge Planning,Hot or Cold Pack,Neuromuscular Re-ed, Coordination Retraining,Manual Therapy Precautions Lumbar Precautions Log Roll,No Twisting,Limit Bending,Lifting Restriction of 10 lbs,Gait Belt above Incisional Area Recommendations To Nursing Amount of Assist Needed 1 Person Assist Discharge Recommendations PT Discharge Recommendations SNF Rehab Transportation Needs at Discharge Wheelchair/Cabulance
[2021-12-28] MEDS: MULTIVITAMIN 1 TABLET 1 TAB PO (09:32)
[2021-12-28] MEDS: DOCUSATE 100 MG CAPSULE PO (09:32)
[2021-12-28] MEDS: ATORVASTATIN 20 MG TABLET PO (09:32)
[2021-12-28] MEDS: hydrOXYzine pamoate 25 MG CAPSULE PO ×2 (09:32→14:17)
[2021-12-28] MEDS: SODIUM CHLORIDE 0.9% FLUSH 10 ML IV (09:33)
--- NOTE | 2021-12-28 10:40 | OT.IP.TRT ---
Current Diagnoses Other spondylosis with radiculopathy, lumbosacral region (12/26/21) Spinal stenosis, lumbar region without neurogenic claudication (12/26/21) Arthrodesis status (12/26/21) Other specified postprocedural states (12/26/21) Surgery Performed Operation Date: 12/26/21 07:45 Actual Procedures p L3-4,L4-5 TLIF L4-5 lumbar HWR,exploration of fusion,repeat laminectomy,reinsertion of hardware L3-S1-Teresa To MD Occupational Therapy Treatment Note M2 OT-IP Current Condition Start: 12/27/21 13:15 Freq: Status: Active Protocol: Document 12/27/21 11:05 [facility] (Rec: 12/27/21 13:35 [facility] [id number]) Occupational Therapy Current Condition Current Condition Evaluation Date 12/27/21 Treatment Diagnosis s/p L3-4, L5-S1, L4-5 hardware revision, L3-S1 PSF with ins Diagnosis Onset Date 12/26/21 Post Operative Precautions Lumbar Precautions Log Roll,No Twisting,Limit Bending,Lifting Restriction of 10 lbs,Gait Belt above Incisional Area M3 OT- IP Subjective and Pain Start: 12/27/21 13:15 Freq: Status: Active Protocol: Document 12/28/21 10:06 [facility] (Rec: 12/28/21 10:54 [facility] [id number]) OT- Subjective Occupational Therapy Visit Type Type Treatment Note Visit Start Time 10:06 Visit Stop Time 10:40 Total Visit Minutes 34 Occupational Therapy Visit Comments Patient Comments Pt agreed to practice getting up , pt's in the room. Patient/Caregiver Goals TO go home. OT Pain Assessment Pain When Pain Assessed At Rest Pain Present Pain Present Pain Reported Location Back Intensity 3 Scale Used Numeric (0 - 10) M4 OT- IP ADL's Start: 12/27/21 13:15 Freq: Status: Active Protocol: Document 12/28/21 10:06 [facility] (Rec: 12/28/21 10:54 [facility] [id number]) OT ADL-Grooming Comments OT Grooming Comments Not performed. OT ADL-Oral Care Comments Oral Care Comments Not performed. OT ADL-Dressing General Eval Lower Body Dressing Ability Minimal Assistance Areas Needing Assistance Underpants/Brief Comments OT Dressing Comments Able to practice with foreign diplomat to linda brief over his feet and needing SAMIR for balance when up on his feet and assist to pull up the brief in the back. M5 OT- IP IADL's Start: 12/27/21 13:15 Freq: Status: Active Protocol: Document 12/27/21 11:05 [facility] (Rec: 12/27/21 13:35 [facility] [id number]) OT-Instrumental Activities of Daily Living Home Safety Awareness Home Safety Comments Pt has a supportive to be able to assist pt for his needs. M6 OT- IP Functional Cognition Start: 12/27/21 13:15 Freq: Status: Active Protocol: Document 12/28/21 10:06 [facility] (Rec: 12/28/21 10:54 [facility] [id number]) Cognitive Factors Limiting Selfcare Function Cognitive Ability Level of Alertness Alert,Drowsy Patient Orientation Name,Place,Situation Attention Span Ability Capable of Focused Attention, Capable of Sustained Attention Ability to Follow Commands Able to Follow One Step Commands with Increased Time, Able to Follow One Step Commands with Repetition Cognitive Comments Cognitive Assessment Comments Pt insisting that he can just push up on his 's shoulders in order to get up. OT had to educated him best to push up from the bed with both hands. Pt needing increased cues to follow. M7 OT- IP Mobility and Balance Start: 12/27/21 13:15 Freq: Status: Active Protocol: Document 12/28/21 10:06 [facility] (Rec: 12/28/21 10:54 [facility] [id number]) OT- Bed Mobility Assessment Rolling Type of Rolling Roll to Right Level of Assistance Contact Guard Assistance Supine to Sit Supine to Sit Assist Minimal Assistance Sit to Supine Sit to Supine Assist Moderate Assistance Scooting Scooting to Edge of Bed Standby Assistance OT-Transfer Assessment Sit to and From Stand Sit to and from Stand Moderate Assistance,Maximum Assistance Comments Mobility Comments MOD/MAXA x 1 to stand from high bed. Pt states feeling woozy. BP sitting 106/59, standing 108/60, and after supine in bed 129/64. Passed to nursing best to have two person assist for transfer at this time. OT- Balance Assessment Sitting Balance and Reactions Static Sitting Balance Ability Good Dynamic Sitting Balance Ability Fair Standing Balance and Reactions Static Standing Balance Ability Fair M8 OT- IP Objective Assessments Start: 12/27/21 13:15 Freq: Status: Active Protocol: Document 12/27/21 11:05 [facility] (Rec: 12/27/21 13:35 [facility] [id number]) OT-Muscle Tone Assessment Muscle Tone WNL Yes M9 OT- IP Assessment and Plan Start: 12/27/21 13:15 Freq: Status: Active Protocol: Document 12/28/21 10:06 [facility] (Rec: 12/28/21 10:54 [facility] [id number]) OT Summary Assessment and Plan Potential Rehabilitation Potential Good Analytic Complexity at Evaluation Low Summary OT Impairments Pain,Balance,Functional Mobility,Grooming,Dressing, Toileting,Bathing,Toilet Transfers,Shower Transfers, Activity Tolerance Progress Towards Goals Slow Progress due to Pain,Slow Progress due to Medical Issues,Slow Progress due to Activity Tolerance Assessment Summary Pt still needing extensive assist for transitions of bed mobility and sit to stands. Pt able to practice with LB dressing equipment today for ADL needs. At this time would be best for pt to go to skilled rehab when medically stable. Per case management, his insurance may not cover a SNF stay. Goals Grooming Goal Independent Dressing Goal Minimal Assistance Toileting Goal Independent Bathing Goal Independent Toilet Transfer Goal Independent Shower Transfer Goal Independent Patient/Caregiver Education Goal Demonstrate Post-Op Precautions,Caregiver Independent Assisting Patient Days to Meet Goals 10 Frequency of Treatment Frequency Of Treatment Once a Day Treatment Plan OT Treatment Plan ADL Training,Functional Mobility,Patient/Family Education,Discharge Planning Other Treatment Recommendations and Next caregiver training Treatment Focus Discharge Recommendations OT Discharge Recommendations SNF Rehab Home Equipment Needs shower chair Transportation Needs at Discharge Private Vehicle,Wheelchair/ Cabulance
[2021-12-28 12:08] VITALS: BP 117/54; PULSE 76; RESP 16; TEMP 37.7; O2SAT 98
[2021-12-28 14:06] LABS: COVID19 -Nasal RAPID Negative (Negative)
--- NOTE | 2021-12-28 14:11 | CM.DPNOTE ---
Faxed last of snf referral clinicals to [facility] and received fax conf. Mandi Beard CM Assist.
--- NOTE | 2021-12-28 15:42 | PT-IP ANOTE ---
Attempted to see pt at 15:42, pt had already d/c to SNF.
--- NOTE | 2021-12-28 15:52 | PC.NURSE ---
Pt is A&Ox3. VSS, afebrile on RA. Low grade temp this a.m. 99.3 Encouraged to use IS with good effect. He is medicated prior to PT/OT and able to get out of bed with assistance. He reports pain to his back is 3/10 at rest and shoots up to 8-10 /10 with movement. He is taking good po and has good out put but is complaining of feeling constipated. MOM given prn per request. He is cleared for discharge to SNF this afternoon to [facility]. His is supportive at the bedside. COVID test sent to lab, with negative results and pt is prepared for discharge via w/ch at 1500 with facility designee who is given his packet. He is discharged with all of his belongings. Report given to Jesi at [facility].
--- NOTE | 2021-12-28 16:41 | CM.DPNOTE ---
DC Note Planned changed today; PT recommending SNF and patient/spouse agreeable to this option. Patient/spouse request referral to [facility]. Patient has MCR so copy of MCR card taken and faxed to Jennifer/[facility]...[facility] accepted using a COVID waiver; patient required one more night inpatient to use MCR benefit but COVID waiver used to bypass this requirement Plan: CHANG this afternoon, w/c p/u 1500 to [facility] H+R C19 PCR updated, all DC ppk faxed Updated Juan M at [facility]
== END 2021-12-28 15:05 | DRG 454 ==
PROVIDERS: Admitting Provider Orthopaedic Surgery Orthopaedic Surgery of the Spine; Family Provider Family Medicine Geriatric Medicine; PCP Family Medicine; Referring Provider Orthopaedic Surgery Orthopaedic Surgery of the Spine; Visit Provider Orthopaedic Surgery Orthopaedic Surgery of the Spine
PROC: 0SG00AJ Fusion of Lumbar Vertebral Joint with Interbody Fusion Device, Posterior Approach, Anterior Column, Open Approach (ICD-10-PCS; principal; 2021-12-26 07:45)
DX: M48.061 Spinal stenosis, lumbar region without neurogenic claudication (principal); T84.038A Mechanical loosening of other internal prosthetic joint, initial encounter; M96.0 Pseudarthrosis after fusion or arthrodesis; M48.07 Spinal stenosis, lumbosacral region; M41.56 Other secondary scoliosis, lumbar region; M96.1 Postlaminectomy syndrome, not elsewhere classified; G89.18 Other acute postprocedural pain; I95.1 Orthostatic hypotension; I10 Essential (primary) hypertension; K21.9 Gastro-esophageal reflux disease without esophagitis; E78.5 Hyperlipidemia, unspecified; Z98.1 Arthrodesis status; Z87.891 Personal history of nicotine dependence; Z20.822 Contact with and (suspected) exposure to COVID-19
CPT/HCPCS: 36415; 72100; 76000; 82962; 85014; 85018; 87635; 97162; 97165; 97530; 97535; C9803; C1713; C1831; C9290; J0171; J0330; J0690; J1100; J1170; J2405; J2704; J3010

== ENCOUNTER → 2022-12-04 10:15 | Outpatient (CLI) | payer MEDICARE, BC, SELFPAY ==
[2021-12-26 14:28] VITALS: BMI 27.3
--- NOTE | 2022-12-04 | DI.CT.S_ITS ---
PROCEDURE: CT LUMBAR SPINE WO CON INDICATIONS: SPINAL STENOSIS TECHNIQUE: Noncontrast 3 mm thick sections acquired from the T12 level to the sacrum. Sagittal and coronal reformats were constructed. For radiation dose reduction, the following was used: automated exposure control. COMPARISON: [facility], CR, XR LUMBAR SPINE 2 OR 3 VIEWS, 11/21/2022, 11:13. [facility], CT, CT LUMBAR SPINE WO CON, 10/31/2021, 13:05. FINDINGS: Image quality: Excellent. Bones: There is normal bony alignment. Interval extension of posterior lateral betsy and pedicle screw fixation , now spanning from L3 through S1, previously just L4 and L5. Associated posterior surgical decompression. Disc spacers are present at L3-L4 through L5-S1. There is some lucency visible surrounding the bilateral L3 and S1 screws. No acute vertebral body compression fractures. No suspicious lytic or blastic bony lesions. No pars defects. T12-L1: No canal stenosis or foraminal stenosis. CT 5 in keeping L1-L2: Mild disc bulge. No significant canal stenosis. Mild bilateral foraminal stenosis. L2-L3: Disc bulge. Ifua-an-rrxwbrku canal stenosis. Mild bilateral foraminal stenosis. L3-L4: Fused level. Posterior decompression. No canal stenosis or foraminal stenosis. L4-L5: Fused level. Posterior decompression. No canal stenosis or foraminal stenosis. L5-S1: Fused level, posteriorly decompressed. No canal stenosis. No significant right foraminal narrowing. Mild to moderate left foraminal narrowing. Soft tissues: No retroperitoneal masses or hematomas. Visualized aorta is normal in caliber. IMPRESSION: 1. Interval extension of posterior lateral betsy and pedicle screw fixation, previously at L4-L5, and now from L3 through S1. 2. There is subtle lucency surrounding the bilateral L3 and bilateral S1 screws, of uncertain significance. 3. Otherwise expected postsurgical appearance. 4. There is [id number] canal stenosis at L2-L3. Dictated by: Pritesh Chandra M.D. on 12/04/2022 at 11:25 Approved by: Pritesh Chandra M.D. on 12/04/2022 at 11:42
== END ==
PROVIDERS: PCP Family Medicine; Referring Provider Orthopaedic Surgery Orthopaedic Surgery of the Spine; Visit Provider Orthopaedic Surgery Orthopaedic Surgery of the Spine
DX: M48.062 Spinal stenosis, lumbar region with neurogenic claudication (principal); Z98.1 Arthrodesis status
CPT/HCPCS: 72131

== ENCOUNTER 2023-04-23 08:39 | Inpatient (IN) | payer MEDICARE, BC, SELFPAY ==
[2021-12-26 14:28] VITALS: BMI 27.3
[2023-04-17 10:49] VITALS: BMI 25.0
[2023-04-23] VITALS (15 sets, daily range): BP systolic 83–125; BP diastolic 39–69; PULSE 62–83; RESP 10–21; TEMP 35.9–36.7; O2SAT 93–100; BMI 25.0; BMI 25.7
--- NOTE | 2023-04-23 09:58 | PM.PREOP ---
Pre-operative Note COVID-19 Criteria for continued procedure: Expected advancement of disease process, Possibility delay results in more complex future surgery or treatment, Increased loss of function, Continuing or worsening of significant or severe pain, Deterioration of the patient's condition or overall health and Delay expected to result in less-positive ultimate med/surg outcome Interval Note History & Physical reviewed/Exam performed by Physician: Yes Changes to H&P: No
[2023-04-23] MEDS: CEFAZOLIN 2 GM/100 ML PREMIX 100 ML IV ×2 (10:36→18:29)
[2023-04-23] MEDS: BUPIVACAINE 0.25% (PF) 30 ML, EPINEPHrine 0.15 MG INJ (11:11)
[2023-04-23] MEDS: BUPIVACAINE LIPOSOME 266 MG/20 ML VIAL INJ (12:30)
--- NOTE | 2023-04-23 12:37 | DI.RAD.S_ITS ---
PROCEDURE: XR LUMBAR SPINE 2-3V INDICATIONS: SCREW REPLACEMENT TECHNIQUE: 4 intraoperative views of the lumbar spine were acquired. COMPARISON: [facility] [place], CR, XR LUMBAR SPINE 2 OR 3 VIEWS, 03/13/2023, 11:03. [facility], CR, XR LUMBAR SPINE 2-3V, 12/26/2021, 13:11. FINDINGS: L3-S1 pedicle screw fixation. Hardware projects in the expected location. IMPRESSION: Intraoperative guidance provided. Dictated by: Vick Dang M.D. on 04/23/2023 at 13:46 Approved by: Vick Dang M.D. on 04/23/2023 at 13:48
--- NOTE | 2023-04-23 12:39 | P.OP_ITS ---
Operative Date/Time/Diagnoses Date of procedure: 04/23/23 Time of procedure: 10:15 Pre-op diagnosis: 1. L3-4, L4-5, L5-S1 hardware loosening 2. History of L3-4, L5-S1 fusion with pseudoarthrosis Post-op diagnosis: same Procedure & Clinicians Procedure: 1. Revision L3-4, L4-5, L5-S1 posterior instrumentation 2. L3-4, L5-S1 posterior fusion 3. L3-4, L5-S1 left revision hemilaminectomy and exploration of fusion Same procedure as scheduled: Yes Indications: Patient has been having worsening back pain with previous history of revision fusion L3-S1 with instrumentation. Patient's recent CT shows loosening of hardware and possible pseudoarthrosis. Patient failed multiple conservative management with worsening pain that limits his ability to walk and perform activities of daily living. Patient has been having difficulty performing activity of daily living. After discussing risks benefits of treatment options, patient elected proceed with surgery. Surgeon: Rosalina To Telephone Repairer: Doc Bynum Click Yes if Unassisted: No Anesthesia Type: General Operative Notes Closure Type: primary Specimen(s): none sent Prosthetic devices, grafts, tissues, transplants, or devices: Globus CREO MIS screws. Applied: catheter Estimated Blood Loss (mL): 50 Blood products transfused: none Procedure in detail: Patient was seen in the preoperative area. Risks and benefits of the surgery was discussed with the patient. Informed consent was obtained from the patient and placed in the chart. Surgical site was marked. Patient was taken to the operative room. General anesthesia was administered. Prophylactic antibiotic was given to the patient less than 30 min before the incision was made. Patient was placed into a prone position on the Mirza table. Patient's back was then prepped and draped in the sterile fashion. Time-out was performed at this time. Using patient's previous scar incision was made over the L3-4, L4-5, L5-S1 interval on the right side. Fascia was incised in line with skin incision. Tristen patelkal's previously placed hardware over the L3-4, L4-5, L5-S1 level was identified by dissecting down to the level the hardware using a Bovie and a Andrews. The locking caps which was removed using globus screwdriver. The locking betsy was then removed from the tulips of the pedicle screws using a Rosa. The pedicle screws were then removed using the screwdriver. The screws were found to be loose. At this time a mirror image incision was made on the left side. The fascia was incised in line with the skin incision. Patient's previously placed hardware on the left side was then removed in the same fashion as it was on the right side. The hardware was also found to have poor purchase at L3, L4 and S1 pedicles. The fusion mass on the left side was exposed by performing a left-sided hemilamin ectomy at L3-4, 5-S1 level. The hemilaminectomy was performed using the Kerrison rongeur to undercut the lamina as well removing additional epidural scar tissue for purpose of decompressing the epidural space. The fusion mass was explored and was found have visible motion indicating pseudoarthrosis at L3-4, L5-S1 level The fusion at L4-5 was found to be solid. Globus MARS retractor was inserted and docked onto the L3-4, L5-S1 posterolateral gutter. Using the power drill, posterior-lateral decortication was performed at L3-4, L5-S1 level until bleeding cortical bone was identified. The remaining bone grafting material was placed into the L3-4, L5-S1 posterior lateral gutter he order to accomplish posterolateral fusion at the L3-4, L5-S1 level. Using the double C-arm technique, pedicle screws were placed into the L3, L4, L5, S1 pedicles bilaterally. This was done by placing the Jamshidi needle into the pedicles, then placing the guidewires over the Jamshidi needle, and finally placing the cannulated screws over the guidewires bilaterally. After the pedicle screws were placed, 2 titanium rods was locked into the heads of the pedicle screws using locking caps and torque limiting screwdriver. S1 pedicle screws were increased to 10.5 mm in size. L3 pedicle screws were increased to 9.5 mm in size. This is due to the significantly loosened purchase and inability to get acceptable purchase with smaller diameter screws. After all the hardware was placed, and confirmed with AP and lateral C-arm imaging, the wound was then irrigated with sterile normal saline and packed with Ray-Aram gauze for 3 min to accomplish hemostasis. After the gauze was removed the deep fascia was closed with #1 Vicryl suture. The subcutaneous layer was closed with 2-0 Vicryl. The skin was closed with skin cher. Patient tolerated the procedure well. There were no complications. The Operation could not have been safely performed without compromising the technical result or length of the procedure, without the assistance of a skilled rn surgical pcu. The rn surgical pcu was medically necessary for proper positioning, retraction and manipulation of instruments, proper exposure, surgical preparation, and manipulation of tissue. Complications: none Post-operative Condition: stable Disposition: PACU Plan for aftercare: Admit to inpatient hospital
[2023-04-23] MEDS: HYDROMORPHONE 2 MG INJ IV ×2 (13:00→13:16)
[2023-04-23] MEDS: hydrOXYzine 50 MG/ML INJ 25 MG IM (13:03)
[2023-04-23] MEDS: OXYCODONE IR 5 MG TABLET PO (13:36)
--- NOTE | 2023-04-23 13:38 | SUR.PHASEI ---
Patient reported right chest/side pain, ache 8/10 soon after arriving in PACU. GURPREET Melendrez and Dr. To notified. Pain has resolved per patient. Condition otherwise stable. No new orders. Report called to Cesar.
--- NOTE | 2023-04-23 13:55 | SUR.PHASEI ---
Patient transferred to the floor with his yellow ring, cane, glasses, hearing aids, belongings bag. Report given to Cesar. Condition stable. IV and michele patent.
[2023-04-23] MEDS: ACETAMINOPHEN 325 MG TABLET 650 MG PO (14:20)
[2023-04-23] MEDS: OXYCODONE IR 10 MG TABLET PO ×2 (14:20→20:23)
[2023-04-23] MEDS: LACTATED RINGERS 1,000 ML 125 ML IV ×2 (14:20→22:59)
--- NOTE | 2023-04-23 17:00 | PT.IIE ---
Current Diagnoses Other mechanical complication of other internal orthopedic devices, implants and grafts, initial encounter (04/23/23) Arthrodesis status (04/23/23) Surgery Performed Operation Date: 04/23/23 10:15 Actual Procedures p L3-S1 lumbar HWR, exploration of fusion, repeat lamincectomy, reinsertion of hardware, repeat PSF L3-S1 - Rosalina To MD Surgical History (Last Updated 04/17/23 @ 10:58 by Sweetie Bradley, RN) History of lumbar fusion (~2015) History of lumbar spinal fusion (12/26/21) Hx of angioplasty Hx of bilateral cataract extraction Hx of cholecystectomy (12/2020) Hx of detached retina repair Hx of left inguinal hernia repair Hx of lithotripsy Hx of mitral valve repair (~1997) Hx of right inguinal hernia repair Medical History (Last Updated 04/17/23 @ 11:14 by Sweetie Bradley RN) Bleeding ulcer CAD (coronary artery disease) Cardiomyopathy COPD (chronic obstructive pulmonary disease) Former smoker GERD (gastroesophageal reflux disease) Hearing loss History of alcoholism History of TB (tuberculosis) HLD (hyperlipidemia) HTN (hypertension) Inferior myocardial infarction (07/2018) Kidney stone Pancreatitis (12/2020) Paroxysmal A-fib Skin cancer TIA (transient ischemic attack) (~1997) Tuberculosis Physical Therapy Inpatient Evaluation/Re-Eval M1 PT/OT-IP Prior Functional Status Start: 04/23/23 16:50 Freq: NEEDED Status: Active Protocol: Document 04/23/23 16:50 ES (Rec: 04/23/23 17:00 ES [id number]) Medical Review Prior Functional Status Medical History Reviewed Yes Communication Indep Mobility and Gait Indep with SPC for the past 6 months. Was ambulating without AD prior to that. Activities of Daily Living and IADL's Indep Social History Household Members spouse Living Arrangements House Number of Floors (Floors) Two Floors Number of Stairs To Enter/Railing? 6 steps up to deck, full flight of stairs inside. All stairs have at least one rail. Previously used rail and cane . Home Environment High Toilet,Tub/Shower Home Equipment Front Wheel Walker,Straight Cane,Grab Bars In Shower Employment Status Retired Additional Social History Comment Has a wedge for the bed if needed. M2 PT-IP Current Condition Start: 04/23/23 16:50 Freq: NEEDED Status: Active Protocol: Document 04/23/23 16:50 ES (Rec: 04/23/23 17:00 ES [id number]) Physical Therapy Current Condition Current Condition Evaluation Date 04/23/23 Treatment Diagnosis S/p L3-4, L4-5, L5-S1 revision fusion; difficulty walking Onset Date 04/23/23 M3 PT-IP Subjective Start: 04/23/23 16:50 Freq: NEEDED Status: Active Protocol: Document 04/23/23 16:50 ES (Rec: 04/23/23 17:00 ES [id number]) Subjective Physical Therapy Visit Type Type Initial Evaluation Visit Start Time 16:18 Visit Stop Time 16:49 Total Visit Minutes 31 Physical Therapy Visit Comments Patient Comments Patient alert in bed, present. Patient agreeable to get out of bed and walk with therapy. Denied numbness/ tingling in legs. Stated he has been using log roll and avoiding bending/twisting/ lifting prior to surgery and feels well prepared. Therapy Pain Assessment Pain When Pain Assessed At Rest Pain Present Pain Present Pain Reported Location Back Intensity 4 Scale Used Numeric (0 - 10) M4 PT-IP Mobility and Gait Start: 04/23/23 16:50 Freq: NEEDED Status: Active Protocol: Document 04/23/23 16:50 ES (Rec: 04/23/23 17:00 ES [id number]) PT-Bed Mobility Assessment Rolling Type of Rolling Log Rolling Level of Assist Independent Supine to Sit Supine to Sit Standby Assistance Sit to Supine Sit to Supine Standby Assistance Scooting Scooting to Edge of Bed Independent Scooting Up and Down in Bed Independent PT-Transfer Assessment Sit to and From Stand Sit to and from Stand Contact Guard Assistance,Use of Upper Extremities Equipment Transfer Assistive Device Gait Belt,Front Wheeled Walker Comments Mobility Comments BP supine 126/60. Performed bed mobility with HOB flat, no use of rails. BP sitting 114/ 47, asymptomatic. BP standing 119/61. SPO2 in 90's throughout visit. Patient demonstrated compliance with lumbar precautions without cueing. Gait Assessment Gait Gait Assistance Required: Contact Guard Assist Distance (Feet) 250 Assistive Devices Assistive Device Gait Belt,Front Wheeled Walker Gait Deviations General Gait Pattern Decreased Stride Length, Decreased Feet Clearance, Narrow Based Gait Comments Gait Comments Ambulated with decreased gait speed. No LOB with turning. PT-Balance Assessment Sitting Balance and Reactions Static Sitting Balance Ability Good Dynamic Sitting Balance Ability Good Standing Balance and Reactions Static Standing Balance Ability Good Dynamic Standing Balance Ability Fair Device Used FWW M5 PT-IP Objective Assessments Start: 04/23/23 16:50 Freq: NEEDED Status: Active Protocol: Document 04/23/23 16:50 ES (Rec: 04/23/23 17:00 ES [id number]) Orientation Orientation/Cognition Level of Alertness Alert Orientation Name,Age,Birthday,Month,Date, Year,Day of Week,Place, Situation Language Function Ability No Deficits Noted Safety Awareness Understands Safety Issues Memory Description No Deficits Noted Gross Range of Motion Upper Extremity ROM Assessment Within Functional Limits Lower Extremity ROM Assessment Within Functional Limits Strength Upper Extremity Strength Assessment Within Functional Limits Lower Extremity Strength Assessment Within Functional Limits M6 PT-IP Treatment Start: 04/23/23 16:50 Freq: NEEDED Status: Active Protocol: Document 04/23/23 16:50 ES (Rec: 04/23/23 17:00 ES [id number]) Physical Therapy Treatment Education Education Provided Precautions,Post-Op Packet, Safety M7 PT-IP Assessment and Plan Start: 04/23/23 16:50 Freq: NEEDED Status: Active Protocol: Document 04/23/23 16:50 ES (Rec: 04/23/23 17:00 ES [id number]) PT Summary Assessment and Plan Potential Rehabilitation Potential Excellent Status of Condition at Evaluation Stable Summary Impairments Pain,Balance,Bed Mobility, Transfers,Gait Assessment Summary Patient is an 83 year old male POD 0 s/p lumbar fusion revision. He was able to tolerate OOB and ambulation in hallway without c/o increase in pain, dizziness, lightheadedness, or shortness of breath. Vitals were stable on room air. He will benefit from further therapy for stair training, gait training possibly with SPC, and to reinforce lumbar precautions. Anticipate d/c home with ' s assistance. Goals Transfer Goal Independent Gait Goal Independent,Cane Gait Distance 300 ft Other Goals Patient will ascend/descend 16 steps with single rail and cane modified indep. Days to Meet Goals 3 Frequency of Treatment Frequency Of Treatment Twice a Day Treatment Plan Physical Therapy Treatment Plan Transfer Training,Gait Training,Therapeutic Exercise, Post Op Education Precautions Lumbar Precautions Log Roll,No Twisting,Limit Bending,Lifting Restriction of 10 lbs,Gait Belt above Incisional Area Recommendations To Nursing Amount of Assist Needed Standby Assistance Discharge Recommendations PT Discharge Recommendations Home with Assistance Transportation Needs at Discharge Private Vehicle
[2023-04-23] MEDS: lisinopriL 5 MG TABLET 2.5 MG PO (17:34)
[2023-04-23] MEDS: DOCUSATE 100 MG CAPSULE PO (20:23)
[2023-04-23] MEDS: SENNOSIDES 8.6 MG TABLET 17.2 MG PO (20:24)
[2023-04-23] MEDS: METOPROLOL ER 25 MG TABLET PO (20:24)
[2023-04-24] VITALS (11 sets, daily range): BP systolic 100–144; BP diastolic 48–61; PULSE 71–87; RESP 18–20; TEMP 36.7–37.3; O2SAT 91–97
[2023-04-24] MEDS: ACETAMINOPHEN 325 MG TABLET 650 MG PO ×2 (00:44→14:35)
[2023-04-24] MEDS: OXYCODONE IR 10 MG TABLET PO ×5 (00:44→17:11)
[2023-04-24] MEDS: CEFAZOLIN 2 GM/100 ML PREMIX 100 ML IV (03:54)
[2023-04-24] MEDS: PANTOPRAZOLE DR 20 MG TABLET PO (06:37)
--- NOTE | 2023-04-24 07:40 | P.DS_ITS ---
History of Present Illness History of Present Illness Date Patient Seen: 04/24/23 Time Patient Seen: 07:40 Chief complaint: INPT Narrative: Operative Date/Time/Diagnoses Date of procedure: 04/23/23 Time of procedure: 10:15 Pre-op diagnosis: 1. L3-4, L4-5, L5-S1 hardware loosening 2. History of L3-4, L5-S1 fusion with pseudoarthrosis Post-op diagnosis: same Procedure & Clinicians Procedure: 1. Revision L3-4, L4-5, L5-S1 posterior instrumentation 2. L3-4, L5-S1 posterior fusion 3. L3-4, L5-S1 left revision hemilaminectomy and exploration of fusion Same procedure as scheduled: Yes Indications: Patient has been having worsening back pain with previous history of revision fusion L3-S1 with instrumentation. Patient's recent CT shows loosening of hardware and possible pseudoarthrosis. Patient failed multiple conservative management with worsening pain that limits his ability to walk and perform activities of daily living.? Patient has been having difficulty performing activity of daily living.? After discussing risks benefits of treatment options, patient elected proceed with surgery. Surgeon: Rosalina To Retail Commission Sales Associate: Doc Bynum Click Yes if Unassisted: No Anesthesia Type: General Operative Notes Closure Type: primary Specimen(s): none sent Prosthetic devices, grafts, tissues, transplants, or devices: Globus CREO MIS screws. Applied: catheter Estimated Blood Loss (mL): 50 Blood products transfused: none Discharge Providers Provider Date of admission: 04/23/23 08:39 Discharge Date: 04/24/23 Primary care physician: Shaun Garcia DO Consults: 04/23/23 13:49 Consult to Occupational Therapy Evaluate & Treat Comment: Physician Instructions: Evaluate and treat Consult to Physical Therapy Evaluate & Treat Comment: Physician Instructions: Evaluate and Treat Discharge provider: Katt Prescott PA-C Summary Hospital Course Discharge Diagnosis: L3-4, L4-5, L5-S1 hardware loosening; History of L3-4, L5-S1 fusion with pseudoarthrosis, s/p revision of posterior hardware, exploration of fusion and left L3-4, L5-S1 revision of hemilaminectomy Hospital Course: Mr Vasquez's hospital course was unremarkable. On the morning of POD# 1, he was feeling as though he could go home but was concerned [place] another 2 days. I assured him that the staff could provide a boarding pass for an earlier date. Though there was documentation he had worked with PT yesterday, he stated he had not yet been out of bed. He was eating without difficulty and still had his michele catheter in place. His pain was well-controlled with oral medication. Exam Vital Signs (past 8 hours): - 04/24/23 00:44 04/24/23 00:44 04/24/23 00:44 Temperature 99.0 F 99.0 F 99.0 F Pulse Rate 87 Respiratory Rate 20 Blood Pressure 133/60 Pulse Oximetry 97 Oxygen Flow Rate 0 04/24/23 04:00 Temperature 98.1 F Pulse Rate 83 Respiratory Rate 20 Blood Pressure 144/51 H Pulse Oximetry 93 Oxygen Flow Rate 0 Oxygen Delivery Method Room Air Oxygen Flow Rate 0 Narrative Exam Narrative: 5/5 strength in hip flexors, quadriceps, hamstrings, DF, PF, EHL bilaterally. Sensation to light touch intact throughout BLE. Calves soft, compressible, nontender and without palpable cords or masses. Dressing placed intra operatively with some bloody drainage. [facility] Medical History (Updated 04/17/23 @ 11:14 by Sweetie Bradley RN) Bleeding ulcer CAD (coronary artery disease) Cardiomyopathy COPD (chronic obstructive pulmonary disease) Former smoker GERD (gastroesophageal reflux disease) Hearing loss History of alcoholism History of TB (tuberculosis) HLD (hyperlipidemia) HTN (hypertension) Inferior myocardial infarction (07/2018) Kidney stone Pancreatitis (12/2020) Paroxysmal A-fib Skin cancer TIA (transient ischemic attack) (~1997) Tuberculosis Surgical History (Updated 04/17/23 @ 10:58 by Sweetie Bradley RN) History of lumbar fusion (~2015) History of lumbar spinal fusion (12/26/21) Hx of angioplasty Hx of bilateral cataract extraction Hx of cholecystectomy (12/2020) Hx of detached retina repair Hx of left inguinal hernia repair Hx of lithotripsy Hx of mitral valve repair (~1997) Hx of right inguinal hernia repair Social History household members: spouse Smoking Status: Former smoker alcohol intake: former Discharge Assessment & Plan Assessment and Plan Assessment: L3-4, L4-5, L5-S1 hardware loosening; History of L3-4, L5-S1 fusion with pseudoarthrosis, s/p revision of posterior hardware, exploration of fusion and left L3-4, L5-S1 revision of hemilaminectomy Plan of Treatment: Discharge home after PT today if PT agrees and pt able to void independently. Multimodal pain control, f/u in office in 2 weeks as scheduled. Discharge Plan Discharge Plan Patient Disposition: Home Discharge orders & Medications Prescriptions: New docusate sodium 100 mg Capsule 100 mg PO BID PRN (Reason: constipation) Qty: 60 1RF hydroxyzine pamoate 25 mg Capsule 25 mg PO Q4HR PRN (Reason: muscle spasm) Qty: 90 0RF oxycodone 5 mg tablet 5 mg PO Q4-6H PRN (Reason: pain (scale score 7-10)) Qty: 60 0RF Continued lisinopril 2.5 mg Tablet 2.5 mg PO QPM Qty: 0 omeprazole 20 mg Capsule,Delayed Release(Dr/Ec) 20 mg PO QAM Qty: 0 multivitamin Tablet 1 tab PO DAILY Qty: 0 atorvastatin 20 mg Tablet 20 mg PO DAILY metoprolol succinate 25 mg Tablet Extended Release 24 Hr 25 mg PO BID Xarelto 20 mg Tablet 20 mg PO QPM Rx Instructions: must administer with evening meal acetaminophen 325 mg Tablet 650 mg PO Q6HR PRN (Reason: Pain, Mild (1-3)) Qty: 240 2RF aspirin 81 mg Tablet,Delayed Release (Dr/Ec) 81 mg PO DAILY Follow up/Referrals: Rosalina To MD [Physician] - As previously scheduled (Follow up with Dr To on 05/08/2023 @ 10:30 at [facility] [[email or web address] Shaun Garcia DO [Primary Care Provider] - Diet/Activity/Treatments Diet: Diet as Tolerated Activity: No deep bending or twisting at the waist. No lifting more than 10 pounds. Cold/Heat Therapy: Heating pad to low back as needed for pain. Skin/Wound/Dressing Care Report to your healthcare provider any signs of infection, such as:: chills, fever, night sweats, unusual drainage and unusual redness Dressing: May shower; keep dressing as dry as possible. If dressing becomes wet or dirty, may remove and replace with clean, dry gauze. No bathing or otherwise soaking incisions. Do not apply any creams, lotions, or ointments to incisions. Visit Report/Discharge Packet Instructions: DI for Prescription Opioid Use, DI for Transforaminal Lumbar Interbody Fusion Stand Alone Forms: Patient Portal/API, Stroke Signs & Symptoms, Surgery Discharge Discharge Data Primary Care Provider: Shaun Garcia VTE Deep Vein Thrombosis/Pulmonary Embolism Present on Admission: No
[2023-04-24] MEDS: MULTIVITAMIN 1 TABLET 1 TAB PO (08:29)
[2023-04-24] MEDS: DOCUSATE 100 MG CAPSULE PO ×2 (08:29→20:40)
[2023-04-24] MEDS: ATORVASTATIN 20 MG TABLET PO (08:29)
[2023-04-24] MEDS: METOPROLOL ER 25 MG TABLET PO ×2 (08:29→20:39)
--- NOTE | 2023-04-24 09:03 | OT.IP.EVAL ---
Current Diagnoses Other mechanical complication of other internal orthopedic devices, implants and grafts, initial encounter (04/23/23) Arthrodesis status (04/23/23) Surgery Performed Operation Date: 04/23/23 10:15 Actual Procedures p L3-S1 lumbar HWR, exploration of fusion, repeat lamincectomy, reinsertion of hardware, repeat PSF L3-S1 - Rosalina To MD Past Medical History (Last Updated 04/17/23 @ 11:14 by Sweetie Bradley, RN) Bleeding ulcer CAD (coronary artery disease) Cardiomyopathy COPD (chronic obstructive pulmonary disease) Former smoker GERD (gastroesophageal reflux disease) Hearing loss History of alcoholism History of TB (tuberculosis) HLD (hyperlipidemia) HTN (hypertension) Inferior myocardial infarction (07/2018) Kidney stone Pancreatitis (12/2020) Paroxysmal A-fib Skin cancer TIA (transient ischemic attack) (~1997) Tuberculosis Surgical History (Last Updated 04/17/23 @ 10:58 by Sweetie Bradley RN) History of lumbar fusion (~2015) History of lumbar spinal fusion (12/26/21) Hx of angioplasty Hx of bilateral cataract extraction Hx of cholecystectomy (12/2020) Hx of detached retina repair Hx of left inguinal hernia repair Hx of lithotripsy Hx of mitral valve repair (~1997) Hx of right inguinal hernia repair Occupational Therapy Inpatient Evaluation/Re-Eval M1 PT/OT-IP Prior Functional Status Start: 04/24/23 12:21 Freq: NEEDED Status: Active Protocol: Document 04/24/23 08:31 [facility] (Rec: 04/24/23 13:07 [facility] [id number]) Medical Review Prior Functional Status Medical History Reviewed Yes Communication Indep Mobility and Gait Indep with SPC for the past 6 months. Was ambulating without AD prior to that. Activities of Daily Living and IADL's Indep Prior Functional Level (Other details) Pt has a supportive to assist. Social History Household Members spouse Living Arrangements House Number of Floors (Floors) Two Floors Number of Stairs To Enter/Railing? 6 steps up to deck, full flight of stairs inside. All stairs have at least one rail. Previously used rail and cane . Home Environment High Toilet,Tub/Shower Home Equipment Front Wheel Walker,Straight Cane,Grab Bars In Shower Employment Status Retired Additional Social History Comment Has a wedge for the bed if needed. M2 OT-IP Current Condition Start: 04/24/23 12:21 Freq: Status: Active Protocol: Document 04/24/23 08:31 [facility] (Rec: 04/24/23 13:07 [facility] [id number]) Occupational Therapy Current Condition Current Condition Evaluation Date 04/24/23 Treatment Diagnosis S/p L3-S1 revision fusion Diagnosis Onset Date 04/23/23 Post Operative Precautions Lumbar Precautions Log Roll,No Twisting,Limit Bending,Lifting Restriction of 10 lbs,Gait Belt above Incisional Area M3 OT- IP Subjective and Pain Start: 04/24/23 12:21 Freq: Status: Active Protocol: Document 04/24/23 08:31 [facility] (Rec: 04/24/23 13:07 [facility] [id number]) OT- Subjective Occupational Therapy Visit Type Type Initial Evaluation Visit Start Time 08:31 Visit Stop Time 09:03 Total Visit Minutes 28 Occupational Therapy Visit Comments Patient Comments Pt wanting to get dressed. Patient/Caregiver Goals To go home. OT Pain Assessment Pain When Pain Assessed At Rest Pain Present Pain Present Pain Reported Location Back Intensity 6 Scale Used Numeric (0 - 10) M4 OT- IP ADL's Start: 04/24/23 12:21 Freq: Status: Active Protocol: Document 04/24/23 08:31 [facility] (Rec: 04/24/23 13:07 [facility] [id number]) OT TUD-Qlpn-Bczgsbi General Evaluation Self-Feeding Ability Independent OT ADL-Grooming General Evaluation Grooming Ability Independent Comments OT Grooming Comments While standing with FWW. OT ADL-Oral Care General Eval Oral Care Ability Independent Comments Oral Care Comments Pt able to hinge appropriately to spit into a cup. OT ADL-Dressing General Eval Upper Body Dressing Ability Independent Lower Body Dressing Ability Standby Assistance Comments OT Dressing Comments Pt able to comfortably cross his legs over to do his LB dressing needs. OT ADL-Toileting Comments OT Toileting Comments Pt just had the michele taken out. OT ADL-Bathing Comments OT Bathing Comments Not performed. M5 OT- IP IADL's Start: 04/24/23 12:21 Freq: Status: Active Protocol: Document 04/24/23 08:31 [facility] (Rec: 04/24/23 13:07 [facility] [id number]) OT-Instrumental Activities of Daily Living Deficits IADL Deficits Identified Deficits Home Safety Awareness Awareness of Need for Assistance at Home Good Awareness Ability to Problem Solve Emergency Able to Problem Solve Situations M6 OT- IP Functional Cognition Start: 04/24/23 12:21 Freq: Status: Active Protocol: Document 04/24/23 08:31 [facility] (Rec: 04/24/23 13:07 [facility] [id number]) Cognitive Factors Limiting Selfcare Function Cognitive Ability Level of Alertness Alert Patient Orientation Name,Age,Birthday,Month,Date, Year,Day of Week,Place, Situation Attention Span Ability Capable of Focused Attention, Capable of Sustained Attention Ability to Follow Commands Able to Follow One Step Commands Safety Awareness Decreased Recall of Precautions,Decreased Ability to Apply Precautions Cognitive Comments Cognitive Assessment Comments Pt needing reminder to recall no lifting for precautions initially. Pt also needing reminders to keep the FWW in front of him at all time. OT- Vision and Hearing OT- Vision Assessment Visual Acuity Glasses All The Time M7 OT- IP Mobility and Balance Start: 04/24/23 12:21 Freq: Status: Active Protocol: Document 04/24/23 08:31 [facility] (Rec: 04/24/23 13:07 [facility] [id number]) OT- Bed Mobility Assessment Supine to Sit Supine to Sit Assist Standby Assistance Sit to Supine Sit to Supine Assist Standby Assistance OT-Transfer Assessment Sit to and From Stand Sit to and from Stand Standby Assistance Transfers Transfer Ability Standby Assistance Technique Transfer Destination Bed,Chair Transfer Technique Stand Step Pivot Devices Transfer Assistive Devices Gait Belt,Front Wheeled Walker Comments Mobility Comments BP supine 104/55 and sitting 114/71 . SBA for bed mobility needs and use of FWW. OT- Balance Assessment Sitting Balance and Reactions Static Sitting Balance Ability Normal Dynamic Sitting Balance Ability Good Standing Balance and Reactions Static Standing Balance Ability Good Dynamic Standing Balance Ability Good M9 OT- IP Assessment and Plan Start: 04/24/23 12:21 Freq: Status: Active Protocol: Document 04/24/23 08:31 [facility] (Rec: 04/24/23 13:07 [facility] [id number]) OT Summary Assessment and Plan Potential Rehabilitation Potential Good Analytic Complexity at Evaluation Low Summary OT Impairments Pain,Balance,Functional Mobility,Toileting,Bathing, Shower Transfers Progress Towards Goals Progressing Toward Goals Assessment Summary Pt low complexity and main barriers are safety awareness to have the FWW in front of him and to be sure to incorporate his back precautions- pt tends to twist . Pt to go home with his to assist when medically stable. Goals Toileting Goal Independent Bathing Goal Independent Shower Transfer Goal Independent Days to Meet Goals 5 Frequency of Treatment Frequency Of Treatment Once a Day Treatment Plan OT Treatment Plan ADL Training,Functional Mobility,Patient/Family Education,Discharge Planning Discharge Recommendations OT Discharge Recommendations Home with Assistance Transportation Needs at Discharge Private Vehicle
[2023-04-24] MEDS: polyethylene glycoL 3350 17 GM POWD.PACK PO (10:06)
--- NOTE | 2023-04-24 10:53 | PT.IPTN ---
Current Diagnoses Other mechanical complication of other internal orthopedic devices, implants and grafts, initial encounter (04/23/23) Arthrodesis status (04/23/23) Surgery Performed Operation Date: 04/23/23 10:15 Actual Procedures p L3-S1 lumbar HWR, exploration of fusion, repeat lamincectomy, reinsertion of hardware, repeat PSF L3-S1 - Rosalina To MD Physical Therapy Treatment Note M2 PT-IP Current Condition Start: 04/23/23 16:50 Freq: NEEDED Status: Active Protocol: Document 04/23/23 16:50 [facility] (Rec: 04/23/23 17:00 [facility] [id number]) Physical Therapy Current Condition Current Condition Evaluation Date 04/23/23 Treatment Diagnosis S/p L3-4, L4-5, L5-S1 revision fusion; difficulty walking Onset Date 04/23/23 M3 PT-IP Subjective Start: 04/23/23 16:50 Freq: NEEDED Status: Active Protocol: Document 04/24/23 09:30 [facility] (Rec: 04/24/23 11:11 [facility] [id number]) Subjective Physical Therapy Visit Type Type Treatment Note Visit Start Time 09:30 Visit Stop Time 10:53 Total Visit Minutes 26 Notes Split treatment 9:30-9:42, 10: 39-10:53 Number of ENRICHMENT SPECIALIST Visits 1 Physical Therapy Visit Comments Patient Comments Pt w/ low BP/lightheadedness M4 PT-IP Mobility and Gait Start: 04/23/23 16:50 Freq: NEEDED Status: Active Protocol: Document 04/24/23 09:30 [facility] (Rec: 04/24/23 11:11 [facility] [id number]) PT-Bed Mobility Assessment Rolling Type of Rolling Log Rolling Level of Assist Standby Assistance Sit to Supine Sit to Supine Standby Assistance Scooting Scooting to Edge of Bed Independent Scooting Up and Down in Bed Independent PT-Transfer Assessment Sit to and From Stand Sit to and from Stand Contact Guard Assistance,Use of Upper Extremities Equipment Transfer Assistive Device Gait Belt,Front Wheeled Walker Transfers Transfer Destination Bed,Chair Transfer Technique ambulated Transfer Ability Level of Assist Standby Assistance,Contact Guard Assistance,1 Person Assistance,Use of Upper Extremities Comments Mobility Comments Pt in chair upon arrival, planning to do stair training. CGA for sit<>stand w/ FWW. Upon standing, pt reported some lightheadedness, BP 94/44 . Pt ambulated ~10 ft back to chair and BP increased to 100s /50s. Returned after pt consumed food and water, still in chair but reporting fatigue and wanting to take a nap before stair training. Pts BP low 100s/40s in standing and still feeling somewhat lightheaded. SBA for sit<>sup. Pt left in bed to rest w/ all needs in reach. Gait Assessment Gait Gait Assistance Required: Contact Guard Assist Distance (Feet) 15 Assistive Devices Assistive Device Gait Belt,Front Wheeled Walker Gait Deviations General Gait Pattern Decreased Stride Length, Decreased Feet Clearance, Narrow Based Gait Comments Gait Comments Limited by lightheadedness and low BP. Stair Climbing Assessment Comments Stair Climbing Comments Unable to assess this AM due to low BP/lightheadedness. Will attempt in PM if pt appropriate. PT-Balance Assessment Sitting Balance and Reactions Static Sitting Balance Ability Good Dynamic Sitting Balance Ability Good Standing Balance and Reactions Static Standing Balance Ability Good Dynamic Standing Balance Ability Fair Device Used FWW M5 PT-IP Objective Assessments Start: 04/23/23 16:50 Freq: NEEDED Status: Active Protocol: Document 04/23/23 16:50 [facility] (Rec: 04/23/23 17:00 [facility] [id number]) Orientation Orientation/Cognition Level of Alertness Alert Orientation Name,Age,Birthday,Month,Date, Year,Day of Week,Place, Situation Language Function Ability No Deficits Noted Safety Awareness Understands Safety Issues Memory Description No Deficits Noted Gross Range of Motion Upper Extremity ROM Assessment Within Functional Limits Lower Extremity ROM Assessment Within Functional Limits Strength Upper Extremity Strength Assessment Within Functional Limits Lower Extremity Strength Assessment Within Functional Limits M6 PT-IP Treatment Start: 04/23/23 16:50 Freq: NEEDED Status: Active Protocol: Document 04/24/23 09:30 [facility] (Rec: 04/24/23 11:11 [facility] [id number]) Physical Therapy Treatment Education Education Provided Precautions,Post-Op Packet, Safety M7 PT-IP Assessment and Plan Start: 04/23/23 16:50 Freq: NEEDED Status: Active Protocol: Document 04/24/23 09:30 [facility] (Rec: 04/24/23 11:11 [facility] [id number]) PT Summary Assessment and Plan Potential Rehabilitation Potential Excellent Summary Impairments Pain,Balance,Bed Mobility, Transfers,Gait Progress Towards Goals Slow Progress due to Medical Issues Assessment Summary Pt limited by low BP w/ lightheadedness this AM. SBA to CGA for mobility but unable to complete stair training. Will revisit this PM, pt will need to complete stair training prior to d/c. Has minimum of 8 stairs before landing. Goals Transfer Goal Independent Gait Goal Independent,Cane Gait Distance 300 ft Other Goals Patient will ascend/descend 16 steps with single rail and cane modified indep. Days to Meet Goals 3 Frequency of Treatment Frequency Of Treatment Twice a Day Treatment Plan Physical Therapy Treatment Plan Transfer Training,Gait Training,Therapeutic Exercise, Post Op Education Precautions Lumbar Precautions Log Roll,No Twisting,Limit Bending,Lifting Restriction of 10 lbs,Gait Belt above Incisional Area Recommendations To Nursing Amount of Assist Needed Standby Assistance Discharge Recommendations PT Discharge Recommendations Home with Assistance Transportation Needs at Discharge Private Vehicle
--- NOTE | 2023-04-24 11:02 | PC.NURSE ---
Addendum entered by Marisel Bhatia R.N. 04/24/23 18:35: Original plan for for Pt to discharge today after Huizar cathetar removed and cleared by PT. Pt unable to do stairs with PT today. Huizar cathetar removed at 0830, pt now voiding in urinal. Changed back dressing after notified Katt MARRERO of additional drainage on back incision site. Cleaned and put new xeroform + gauze and medipore tape per Katt Prescott's instructions. Pain adequately controlled with 10mg oxycodone + APAP. Pt OOB with SBA and FWW. Plan for d/c home tomorrow. Provided pt with medical boarding pass for [facility] tomorrow after getting the ok from JANES Prescott. Will continue to monitor. Original Note: Day shift: Pt experienced episode of dizziness while standing this AM. BP 95/48. Pt sat down in chair and drank some fluids. Pt reported dizziness subsided in 5 min. Offered to help get pt back in bed, pt declined and stated he wanted to stay up in the chair. Rechecked BP 15 min later - 100/48. Pt denied dizziness or lightheaded feeling. Notified JANES Prescott. Will continue to monitor.
--- NOTE | 2023-04-24 14:18 | PT.IPTN ---
Current Diagnoses Other mechanical complication of other internal orthopedic devices, implants and grafts, initial encounter (04/23/23) Arthrodesis status (04/23/23) Surgery Performed Operation Date: 04/23/23 10:15 Actual Procedures p L3-S1 lumbar HWR, exploration of fusion, repeat lamincectomy, reinsertion of hardware, repeat PSF L3-S1 - Rosalina To MD Physical Therapy Treatment Note M2 PT-IP Current Condition Start: 04/23/23 16:50 Freq: NEEDED Status: Active Protocol: Document 04/23/23 16:50 [facility] (Rec: 04/23/23 17:00 [facility] [id number]) Physical Therapy Current Condition Current Condition Evaluation Date 04/23/23 Treatment Diagnosis S/p L3-4, L4-5, L5-S1 revision fusion; difficulty walking Onset Date 04/23/23 M3 PT-IP Subjective Start: 04/23/23 16:50 Freq: NEEDED Status: Active Protocol: Document 04/24/23 13:53 [facility] (Rec: 04/24/23 14:43 [facility] [id number]) Subjective Physical Therapy Visit Type Type Treatment Note Visit Start Time 13:53 Visit Stop Time 14:18 Total Visit Minutes 25 Notes present Number of BANK CLERK Visits 2 Physical Therapy Visit Comments Patient Comments Pt reports fatigue, has been napping throughout the day. Therapy Pain Assessment Pain When Pain Assessed During Mobility Pain Present Pain Present Pain Reported Location Back Intensity 4 Scale Used Numeric (0 - 10) Description Shooting,Spasm Pain Behaviors Facial Grimacing,Guarding, Wincing Pain Management Techniques Modification of Treatment,Re- positioning,Timing of Activity with Medications M4 PT-IP Mobility and Gait Start: 04/23/23 16:50 Freq: NEEDED Status: Active Protocol: Document 04/24/23 13:53 [facility] (Rec: 04/24/23 14:43 [facility] [id number]) PT-Bed Mobility Assessment Rolling Type of Rolling Log Rolling,Roll to Right Level of Assist Contact Guard Assistance,1 Person Assistance Supine to Sit Supine to Sit Standby Assistance Scooting Scooting to Edge of Bed Independent PT-Transfer Assessment Sit to and From Stand Sit to and from Stand Contact Guard Assistance,Use of Upper Extremities Equipment Transfer Assistive Device Gait Belt,Front Wheeled Walker Transfers Transfer Destination Chair Transfer Technique ambulated Transfer Ability Level of Assist Contact Guard Assistance,1 Person Assistance,Use of Upper Extremities Comments Mobility Comments Pt in bed upon arrival, BP stable from sup>sit>stand, denied lightheadedness while standing. CGA for sit<>stand w / FWW. Pt ambulated ~35 ft in room CGA slowly needing frequent cues for FWW mgmt/ staying inside FWW especially when turning. Pt putting a lot of weight through FWW d/t pain. Descreased stride and minimal ground clearance during ambulation. Fatigued quickly and requested to go back to bed. Pt states he does not feel ready to complete stairs this PM and I also do not think he is ready/safe to complete stairs. Gait Assessment Gait Gait Assistance Required: Contact Guard Assist Distance (Feet) 35 Assistive Devices Assistive Device Gait Belt,Front Wheeled Walker Gait Deviations General Gait Pattern Decreased Stride Length, Decreased Feet Clearance, Narrow Based Gait Comments Gait Comments See mobility for details. Stair Climbing Assessment Comments Stair Climbing Comments Did not assess, pt reporting pain and high level of fatigue , low tolerance for ambulation this PM and does not feel ready. He has 16 steps to enter but has a landing after 8 steps. Lives on [facility] [facility]. PT-Balance Assessment Sitting Balance and Reactions Static Sitting Balance Ability Good Dynamic Sitting Balance Ability Good Standing Balance and Reactions Static Standing Balance Ability Fair Dynamic Standing Balance Ability Fair Device Used FWW M5 PT-IP Objective Assessments Start: 04/23/23 16:50 Freq: NEEDED Status: Active Protocol: Document 04/23/23 16:50 [facility] (Rec: 04/23/23 17:00 [facility] [id number]) Orientation Orientation/Cognition Level of Alertness Alert Orientation Name,Age,Birthday,Month,Date, Year,Day of Week,Place, Situation Language Function Ability No Deficits Noted Safety Awareness Understands Safety Issues Memory Description No Deficits Noted Gross Range of Motion Upper Extremity ROM Assessment Within Functional Limits Lower Extremity ROM Assessment Within Functional Limits Strength Upper Extremity Strength Assessment Within Functional Limits Lower Extremity Strength Assessment Within Functional Limits M6 PT-IP Treatment Start: 04/23/23 16:50 Freq: NEEDED Status: Active Protocol: Document 04/24/23 13:53 [facility] (Rec: 04/24/23 14:43 [facility] [id number]) Physical Therapy Treatment Education Education Provided Precautions,Post-Op Packet, Safety Other Treatments Other Treatment Performed Scheduled caregiver training for 9 AM 04/25. Pts practiced gait belt application. M7 PT-IP Assessment and Plan Start: 04/23/23 16:50 Freq: NEEDED Status: Active Protocol: Document 04/24/23 13:53 [facility] (Rec: 04/24/23 14:43 [facility] [id number]) PT Summary Assessment and Plan Potential Rehabilitation Potential Excellent Summary Impairments Pain,Balance,Bed Mobility, Transfers,Gait Progress Towards Goals Slow Progress due to Medical Issues,Slow Progress due to Activity Tolerance Assessment Summary Pt had stable BP this afternoon however was not ready to progress to stair training due to quick approach to fatigue and low tolerance for ambulation. Pt needs to ascend/descend at least 8 stairs prior to being safe to d/c home. Scheduled caregiver training w/ pts at 9 AM on 04/25. Goals Transfer Goal Independent Gait Goal Independent,Cane Gait Distance 300 ft Other Goals Patient will ascend/descend 16 steps with single rail and cane modified indep. Days to Meet Goals 3 Frequency of Treatment Frequency Of Treatment Twice a Day Treatment Plan Physical Therapy Treatment Plan Transfer Training,Gait Training,Therapeutic Exercise, Post Op Education Precautions Lumbar Precautions Log Roll,No Twisting,Limit Bending,Lifting Restriction of 10 lbs,Gait Belt above Incisional Area Recommendations To Nursing Amount of Assist Needed 1 Person Assist Discharge Recommendations PT Discharge Recommendations Home with Assistance Transportation Needs at Discharge Private Vehicle
--- NOTE | 2023-04-24 15:46 | CM.DANOTE ---
Patient is an 83 yo male who was admitted on 04/23/23 for TLIF with hardware revision. Pt has [employer] and [employer] for insurance and his PCP is Shaun Garcia. EMR was reviewed. Per Ortho, pt tolerated procedure well and to work more with PT today and may be stable for d/c home today. Per PT, recommend d/c home with spouse assist and will need to do stairs as pt has a lot when he gets home. SW met bedside with pt and explained role and pt all dressed in his street clothes and very friendly and active and indep at baseline. Pt typically does not use DME for ambulation and still drives. Pt states his spouse is staying in a hotel in [place] and they plan to stay maybe a night at discharge before going back to their home on Friday. Pt currently does not anticipate any needs and looking forward to getting home. Per SHOOK MACHINE OPERATOR, attempted stairs today twice but pt had bp issues and now very drowsy and fatigued. Does not feel pt stable for d/c yet today and plan is CG training with spouse at 0900 tomorrow for stairs for likely d/c home. Plan: SW to follow in the AM after CG training/stairs around 0900 to confirm pt stable for d/c home and outpt f/u. BLOSSOM Anton Discharge Planning/Care Management Advanced directive, confirm from FAMILY Start: 04/23/23 14:01 Freq: Q24H Status: Active Protocol: Document 04/24/23 14:01 SB (Rec: 04/24/23 14:04 SB [id number]) Advance Directive, confirm on record Time 13:00 Person contacted Patient Copy received No CM Discharge Assessment Start: 04/24/23 15:45 Freq: Status: Active Protocol: Document 04/24/23 15:45 BF (Rec: 04/24/23 15:46 BF [id number]) Discharge Planning Assessment Assigned Journalism Instructor BLOSSOM Malone DPOA/Assigned Designee Name spouse Advance Directives? Yes Advance Directives on File No History Provided By Patient,Significant Other, Medical Record Has Patient been admitted in last 30 No days? Prior Living Arrangements House Household Members spouse Type of transporation used prior to Drives own vehicle admit Independent with ADL's Yes Is patient alert and oriented? Yes Caregiver for Another No Barriers to Discharge No Discharge Plan Home Transportation Arrangement Family Whiteboard Updated in Patient Room with Yes name and ext. # of Journalism Instructor Review Status In Process Please Provide Date Initial DC 04/24/23 Assessment Was Performed Next Review Type Continued Stay Review Pre-Anesthesia Assessment Start: 04/17/23 10:49 Freq: Status: Active Protocol: Document 04/17/23 10:49 CAB (Rec: 04/17/23 11:30 CAB [id number]) Pre-Anesthesia Assessment Preferred Name Detlef or DW Patient Information Reviewed Via Phone Assessment Assessment Completed With Patient Diagnostic Results BMP/CMP,CBC,EKG Comment Outside labs/EKG scanned Primary Care Provider Shaun Garcia Comment PCP clearance form x 2 scanned Medical Clearance Received Yes Seen Specialist in Last 12 Months Yes Specialist Seen Media Professional,Orthopedist Primary Language Estonian Preferred Language Estonian Account Financial Manager Required No Height 181.61 cm Weight 82.554 kg Body Mass Index (BMI) 25.0 Hearing Ability Hearing Impaired,Use of Hearing Aid Visual Assist Glasses Dentition Type Teeth, Natural Present Barriers to Learning Auditory Hx Anesthesia Reactions No Hx Family Anesthesia Reaction No Hx Malignant Hyperthermia No Hx Blood Transfusions No Anesthesia Review Requested No Fence Supervisor No alcohol intake former Alcohol Intake Frequency Other: Hx alcoholism, quit in February 2021 Smoking Status Former smoker Tobacco type cigarettes,pipe,cigars Substance Use Type does not use Pain Present Pain Reported Musculoskeletal Symptoms Abnormal Gait,Back Pain, Difficulty Walking,Radiating Pain into Limb History of Falling (Recent or History of No ) Patient is completely paralyzed or No completely immobile Prosthesis or Orthotic Device Cane Mental Status Oriented to own ability Is patient on oxygen? No Does patient have SINGH/SOB No Hx Sleep Apnea No CPAP/BIPAP use not prescribed Currently Taking a Beta Rosaline Yes: Metoprolol Can You Climb a Flight of Stairs Without Yes SOB Hx Chest Pain Yes: w/ME 2018 Hx SOB No Hx Syncope or Dizziness Yes: Lightheadedness w/ standing up, states r/t to meds Anti-Coagulant Therapy Yes: Xarelto & ASA-hold 2 days prior per PCP Has a Media Professional Yes Media Professional name Dr. Chávez Cardiac Testing No: Nuc stress & Echo @ [facility] 02/04/23 Hx Pacemaker/ICD No Pacemaker Rep Required? No Cardiac Clearance Received Yes Comment Cardiac records scanned Diet Type At Home Regular Dysphagia No Gastrointestinal Symptoms Constipation Genitourinary Symptoms Change in Urinary Stream Chronic UTI No Urinary Catheter Present No Hx Urinary Self Catheterization No Diabetes No Hx Drug Resistant Organism No Presence of External or Internal Medical Yes: Lumbar hardware, Devices bilateral eye IOLs, chest wires, ring mitral valve repair Received a COVID vaccine? Yes: plus Booster Received all doses? Yes Marital Status Lives With spouse Current Living Arrangements House Number of Floors (Floors) Two Floors Number of Stairs To Enter/Railing? 8 Support System Spouse Does the Patient Have Assistance After Yes Surgery Patient Discharge Plan Description Return Home Comment Pt advised overnight length of stay per surgeon Feels Safe in Current Environment Yes Been Physically Hurt or Threatened By a No Person in Current Environment Do you have thoughts of harming yourself None or others? Are you currently considering suicide? No Do you have a plan to hurt yourself or No Plan others? Do You Have Any Spiritual Beliefs That No May Affect Your HC Choices? Do You Have Any Cultural Practices That No May Affect Your HC Choices? Comment Agnostic Who Can We Speak to About Patient's Care Family, friends Identifying Code for Release of Patient Declines to issue Information Health Care Proxy/Next of Kin Divine () Health Care Proxy or [phone] Emergency Contact Name Divine () Emergency Contact or [phone] Advance Directives? Yes Advance Directives on File No Power of Progressive Care Unit Registered Nurse Yes Power of Progressive Care Unit Registered Nurse Name Divine () Power of Progressive Care Unit Registered Nurse PAC Instructions Durable medical equipment, Medications to take/avoid, Nasal antibiotic,No ETOH/ petroleum product on skin DOS, NPO,Pre-surgical wash,Sensory aids,Sturdy shoes/comfortable clothes,Do not bring valuables and remove jewelry
[2023-04-24] MEDS: SENNOSIDES 8.6 MG TABLET 17.2 MG PO (20:39)
[2023-04-24] MEDS: CALCIUM CARBONATE 500 MG TAB 1000 MG PO (21:09)
[2023-04-25] MEDS: PANTOPRAZOLE DR 20 MG TABLET PO (05:05)
[2023-04-25] MEDS: ACETAMINOPHEN 325 MG TABLET 650 MG PO (05:05)
[2023-04-25] MEDS: OXYCODONE IR 10 MG TABLET PO ×2 (05:05→08:37)
[2023-04-25 05:15] VITALS: BP 110/44; PULSE 90; RESP 18; TEMP 37.2; O2SAT 94
--- NOTE | 2023-04-25 08:21 | PM.PNPO.1 ---
Subjective Subjective Date Patient Seen: 04/25/23 Time Patient Seen: 08:22 Interval history: Pt sitting up in bed. Plan is to go home today after AM PT; he did not pass stair training w/ PT yesterday. Feeling well, pain well-controlled with oral medication, eating and voiding without difficulty. Exam Vital Signs (past 8 hours): - 04/25/23 05:15 Temperature 99.0 F Pulse Rate 90 Respiratory Rate 18 Blood Pressure 110/44 L Pulse Oximetry 94 Oxygen Flow Rate 0 Oxygen Delivery Method Room Air Oxygen Flow Rate 0 Narrative Exam Narrative: 5/5 strength in hip flexors, quadriceps, hamstrings, DF, PF, EHL bilaterally. Sensation to light touch intact in BLE. Calves soft, compressible, nontender and without palpable cords or masses. Dressing changed yesterday; CDI. 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) Kidney stone Pancreatitis (12/2020) Paroxysmal A-fib Skin cancer TIA (transient ischemic attack) (~1997) Tuberculosis Surgical History (Updated 04/17/23 @ 10:58 by Sweetie Bradley RN) History of lumbar fusion (~2015) History of lumbar spinal fusion (12/26/21) Hx of angioplasty Hx of bilateral cataract extraction Hx of cholecystectomy (12/2020) Hx of detached retina repair Hx of left inguinal hernia repair Hx of lithotripsy Hx of mitral valve repair (~1997) Hx of right inguinal hernia repair Social History household members: spouse Smoking Status: Former smoker alcohol intake: former Assessment & Plan Post-op Assessment and plan (1) S/P lumbar fusion: Assessment and Plan narrative: Discharge home today after PT. Postoperative Procedures: Procedures Operation Date: 04/23/23 10:15 Actual Procedure Side Surgeon p L3-S1 lumbar HWR, exploration of fusion, repeat lamincectomy, reinsertion of hardware, repeat PSF L3-S1 Rosalina To MD Postoperative day: 2 Quality VTE Deep Vein Thrombosis/Pulmonary Embolism Present on Admission: No
[2023-04-25 08:36] VITALS: BP 114/55; PULSE 70; RESP 19; TEMP 36.4; O2SAT 98
[2023-04-25] MEDS: DOCUSATE 100 MG CAPSULE PO (08:37)
[2023-04-25 08:38] VITALS: BP 114/55; PULSE 70
[2023-04-25] MEDS: METOPROLOL ER 25 MG TABLET PO (08:38)
[2023-04-25] MEDS: ATORVASTATIN 20 MG TABLET PO (08:38)
[2023-04-25] MEDS: MULTIVITAMIN 1 TABLET 1 TAB PO (08:39)
--- NOTE | 2023-04-25 09:25 | PT.IPTN ---
Current Diagnoses Other mechanical complication of other internal orthopedic devices, implants and grafts, initial encounter (04/23/23) Arthrodesis status (04/23/23) Surgery Performed Operation Date: 04/23/23 10:15 Actual Procedures p L3-S1 lumbar HWR, exploration of fusion, repeat lamincectomy, reinsertion of hardware, repeat PSF L3-S1 - Rosalina To MD Physical Therapy Treatment Note M2 PT-IP Current Condition Start: 04/23/23 16:50 Freq: NEEDED Status: Active Protocol: Document 04/23/23 16:50 ES (Rec: 04/23/23 17:00 ES [id number]) Physical Therapy Current Condition Current Condition Evaluation Date 04/23/23 Treatment Diagnosis S/p L3-4, L4-5, L5-S1 revision fusion; difficulty walking Onset Date 04/23/23 M3 PT-IP Subjective Start: 04/23/23 16:50 Freq: NEEDED Status: Active Protocol: Document 04/25/23 09:51 TS (Rec: 04/25/23 10:13 TS [id number]) Subjective Physical Therapy Visit Type Type Treatment Note Visit Start Time 09:25 Visit Stop Time 09:50 Total Visit Minutes 25 Notes caregiver training Number of INDUSTRIAL CHEMIST Visits 3 Physical Therapy Visit Comments Patient Comments Pt found in bathroom ambulating with cane, spouse in room, reports he is feeling better this morning and is ready to go home. Therapy Pain Assessment Pain When Pain Assessed During Mobility Pain Present Pain Present Pain Reported M4 PT-IP Mobility and Gait Start: 04/23/23 16:50 Freq: NEEDED Status: Active Protocol: Document 04/25/23 09:51 TS (Rec: 04/25/23 10:13 TS [id number]) PT-Bed Mobility Assessment Rolling Type of Rolling Log Rolling,Roll to Right Level of Assist Standby Assistance Supine to Sit Supine to Sit Standby Assistance Sit to Supine Sit to Supine Standby Assistance Scooting Scooting to Edge of Bed Independent Scooting Up and Down in Bed Independent PT-Transfer Assessment Sit to and From Stand Sit to and from Stand Standby Assistance,Use of Upper Extremities Equipment Transfer Assistive Device Gait Belt,Front Wheeled Walker Comments Mobility Comments Pt sat EOB for donning of clothing, he recalled 3/3 spinal precautions prior to mobility. Sit to stand from bed with SPC SBA, pt demonstrates good be of UE support and upright posture in standing. HE ambulated in room/hallway ~200' SBA with SPC, in room he reaches for handrails with LUE for support . He performed stairs x9 ascending/descending with SPC in RUE and handrail assist in LUE SBA step over step, no buckling or LOB. Back in room pt performed sit to supine. supine to sit with logroll techniques SBA, demonstrated good carryover of sequencing. Pt was left in room with spouse present, ready to go home. Gait Assessment Gait Gait Assistance Required: Standby Assistance Distance (Feet) 200 Assistive Devices Assistive Device Gait Belt,Straight Cane Gait Deviations General Gait Pattern Decreased Stride Length, Decreased Feet Clearance, Narrow Based Gait Comments Gait Comments See mobility for details. Stair Climbing Assessment Evaluation Level of Assist On Stairs Standby Assistance Devices Stair Climbing Assistive Devices Straight Cane,Left Railing Technique/Endurance Stair Climbing Direction Ascend and Descend Number of Steps Climbed 9 Comments Stair Climbing Comments See mobility comments. PT-Balance Assessment Sitting Balance and Reactions Static Sitting Balance Ability Good Dynamic Sitting Balance Ability Good Standing Balance and Reactions Static Standing Balance Ability Good Dynamic Standing Balance Ability Good Device Used FWW M5 PT-IP Objective Assessments Start: 04/23/23 16:50 Freq: NEEDED Status: Active Protocol: Document 04/23/23 16:50 ES (Rec: 04/23/23 17:00 ES [id number]) Orientation Orientation/Cognition Level of Alertness Alert Orientation Name,Age,Birthday,Month,Date, Year,Day of Week,Place, Situation Language Function Ability No Deficits Noted Safety Awareness Understands Safety Issues Memory Description No Deficits Noted Gross Range of Motion Upper Extremity ROM Assessment Within Functional Limits Lower Extremity ROM Assessment Within Functional Limits Strength Upper Extremity Strength Assessment Within Functional Limits Lower Extremity Strength Assessment Within Functional Limits M6 PT-IP Treatment Start: 04/23/23 16:50 Freq: NEEDED Status: Active Protocol: Document 04/25/23 09:51 TS (Rec: 04/25/23 10:13 TS [id number]) Physical Therapy Treatment Education Education Provided Precautions,Post-Op Packet, Safety M7 PT-IP Assessment and Plan Start: 04/23/23 16:50 Freq: NEEDED Status: Active Protocol: Document 04/25/23 09:51 TS (Rec: 04/25/23 10:13 TS [id number]) PT Summary Assessment and Plan Potential Rehabilitation Potential Excellent Summary Impairments Pain,Balance,Bed Mobility, Transfers,Gait Progress Towards Goals Progressing Toward Goals Assessment Summary Pt with increased tolerance for activity this session. He progressed his gait to ~200' SBA with SPC and SPC for sit to stands. He performed stairs x9 SBA step over step with SPC and LUE handrail assist, no buckling or LOB. He demonstrated good carryover of logroll sequencing during bed mobility and good awareness of precautions with logroll. He recalled 3/3 spinal precautions prior to mobility, reiterated the importance of following precautions while at home. PT is recommending return home with assist from spouse. Goals Transfer Goal Independent Gait Goal Independent,Cane Gait Distance 300 ft Other Goals Patient will ascend/descend 16 steps with single rail and cane modified indep. Days to Meet Goals 3 Frequency of Treatment Frequency Of Treatment Twice a Day Treatment Plan Physical Therapy Treatment Plan Transfer Training,Gait Training,Therapeutic Exercise, Post Op Education Precautions Lumbar Precautions Log Roll,No Twisting,Limit Bending,Lifting Restriction of 10 lbs,Gait Belt above Incisional Area Recommendations To Nursing Amount of Assist Needed Standby Assistance Discharge Recommendations PT Discharge Recommendations Home with Assistance Transportation Needs at Discharge Private Vehicle
--- NOTE | 2023-04-25 10:36 | PC.NURSE ---
Day shift: Paperwork signed and all questions answered. Dressing remains CDI. CMS intact with BLE weakness present. VS WNL. No nausea and pain well controlled per MAR. Spouse in room for d/c teachings. Left unit via WC at approx 1040. Spouse is driving them home via [employer] boat to [facility]. Has all personal belongings. Taken to car by THANH Albarran.
== END 2023-04-25 10:45 | disposition home or self-care (01) | DRG 457 ==
PROVIDERS: Admitting Provider Orthopaedic Surgery Orthopaedic Surgery of the Spine; PCP Family Medicine; Referring Provider Orthopaedic Surgery Orthopaedic Surgery of the Spine; Visit Provider Orthopaedic Surgery Orthopaedic Surgery of the Spine
PROC: 0SG0071 Fusion of Lumbar Vertebral Joint with Autologous Tissue Substitute, Posterior Approach, Posterior Column, Open Approach (ICD-10-PCS; principal; 2023-04-23 10:15)
DX: T84.038A Mechanical loosening of other internal prosthetic joint, initial encounter (principal); M96.0 Pseudarthrosis after fusion or arthrodesis; M41.56 Other secondary scoliosis, lumbar region; M96.1 Postlaminectomy syndrome, not elsewhere classified; K21.9 Gastro-esophageal reflux disease without esophagitis; I10 Essential (primary) hypertension; E78.5 Hyperlipidemia, unspecified; Z79.01 Long term (current) use of anticoagulants; Z98.1 Arthrodesis status; Z87.891 Personal history of nicotine dependence
CPT/HCPCS: 72100; 76000; 97116; 97161; 97165; 97530; C9290; J0171; J0690; J1170; J2405; J2704; J3010; J3410